=== PATIENT | female | born 1970 | race Caucasian/White ===

== ENCOUNTER 2022-07-06 06:58 | Outpatient (CLI) | payer OTHER, SELFPAY ==
[2022-07-06 07:30] LABS: Hematocrit 38.7 % (37.0-47.0); Hemoglobin 12.9 g/dL (12.0-15.0); Mean Corpuscular HGB Conc 33.3 g/dl (32-36); Mean Corpuscular Hemoglobin 29.1 pg (26-34); Mean Corpuscular Volume 87.4 fl (80-100); Mean Platelet Volume 9.2 fl (7.4-10.4); Platelet Count Result 251 k/mm3 (150-375); Red Blood Count 4.43 M/mm3 (4.2-5.4); Red Cell Distribution Width 13.2 % (11.5-14.5); White Blood Count 11.9 K/mm3 (4.5-10.0)
[2022-07-06 07:42] LABS: Potassium 4.5 mmol/L (3.4-5.0)
[2022-07-06 07:44] LABS: Rheumatoid Factor < 8.6 IU/ML (<12)
[2022-07-06 07:51] LABS: Alanine Aminotransferase 55 U/L (6-35); Albumin Level 4.4 g/dL (3.5-5.1); Alkaline Phosphatase 99 U/L (38-126); Anion Gap 8 mmol/L (8-16); Aspartate Amino Transferase 37 U/L (14-36); Bilirubin,Total 0.6 mg/dL (0.2-1.3); Blood Urea Nitrogen 16 mg/dL (7-17); Calcium 8.7 mg/dL (8.4-10.2); Carbon Dioxide 26 mmol/L (22-30); Chloride 106 mmol/L (98-107); Cholesterol 184 mg/dL (0-200); Estimated Glomerular Filt Rate > 60; Glucose 109 mg/dL (65-110); HDL Direct 49 mg/dL; Sodium 140 mmol/L (137-145); Triglycerides 190 mg/dL (<150)
[2022-07-06 07:54] LABS: LDL Cholesterol Direct 69 mg/dL
[2022-07-06 11:37] LABS: Erythrocyte Sedimentation Rate 16 mm/hr (0-20)
== END 2022-07-06 06:59 | disposition home or self-care (01) ==
PROVIDERS: PCP Family Medicine Adolescent Medicine; Visit Provider Physician Assistant
DX: M25.50 Pain in unspecified joint (principal); R25.2 Cramp and spasm; R53.83 Other fatigue; Z13.220 Encounter for screening for lipoid disorders
CPT/HCPCS: 36415; 80053; 80061; 83735; 84443; 85027; 85652; 86140; 86430

== ENCOUNTER → 2022-07-19 15:39 | Outpatient (CLI) | payer OTHER, SELFPAY ==
--- NOTE | ~2022-07-19 | MR_ITS ---
MRI of the brain Clinical History: Headache Technique: Axial and sagittal T1-weighted images were acquired. These were followed by axial T2-weigh francisco, diffusion weighted, gradient, and FLAIR images. Findings: There is no acute infarct or intracranial hemorrhage. There is somewhat patchy hyperintense FLAIR signal in the white matter adjacent to the atrium of left lateral ventricle and the left parie sumanth lobe, with a somewhat localized regional distribution (axial FLAIR images 20-26). No other signal abnormality seen in the remainder of the brain. Ventricles and subarachnoid spaces are unremarkable. Orbits are unremarkable. Paranasal sinuses and m astoid air cells are clear. Major intracranial flow voids are intact. Sagittal midline structures are intact. IMPRESSION: Regional hyperintense FLAIR signal in the left parietal white matter. While this could reflect atypic al localized distribution of chronic microvascular ischemic changes, other considerations could inclu de demyelinating disease, cerebritis, or possibly infiltrative neoplasm. Postcontrast imaging recomme nded to further assess for active enhancement. Follow-up MR in 3 months recommended to reassess as we ll. Reviewed, dictated and finalized at [facility]. IMPRESSION: Regional hyperintense FLAIR signal in the left parietal white matter. While thi s could reflect atypical localized distribution of chronic microvascular ischem ic changes, other considerations could include demyelinating disease, cerebriti s, or possibly infiltrative neoplasm. Postcontrast imaging recommended to furth er assess for active enhancement. Follow-up MR in 3 months recommended to reass ess as well.
== END ==
PROVIDERS: PCP Physician Assistant; Visit Provider Physician Assistant
DX: R51.9 Headache, unspecified (principal); R29.6 Repeated falls
CPT/HCPCS: 70551

== ENCOUNTER 2022-07-20 06:39 | Outpatient (CLI) | payer OTHER, SELFPAY ==
[2022-07-20 07:34] LABS: Basophils Absolute Auto 0.1 K/mm3 (0.0-0.1); Basophils Percent Auto 1.2 % (0.2-1.2); Eosinophils Absolute Auto 0.4 K/mm3 (0-0.3); Eosinophils Percent Auto 4.1 % (0-4.4); Hemoglobin 12.8 g/dL (12.0-15.0); Immature Granulocyte Absolute 0.02 K/mm3 (0.00-0.031); Immature Granulocyte Percent A 0.2 % (0-0.5); Lymphocytes Absolute Auto 1.83 K/mm3 (0.9-3.2); Lymphocytes Percent Auto 21.7 % (18.3-44.2); Mean Corpuscular HGB Conc 32.8 g/dl (32-36); Mean Corpuscular Hemoglobin 29.4 pg (26-34); Mean Corpuscular Volume 89.7 fl (80-100); Mean Platelet Volume 9.5 fl (7.4-10.4); Monocytes Absolute Auto 0.6 K/mm3 (0.1-0.6); Monocytes Percent Auto 6.6 % (2.6-8.5); Neutrophils Absolute Auto 5.6 K/mm3 (1.3-6.7); Neutrophils Percent Auto 66.2 % (45.5-73.1); Platelet Count Result 258 k/mm3 (150-375); Red Blood Count 4.35 M/mm3 (4.2-5.4); Red Cell Distribution Width 13.4 % (11.5-14.5); White Blood Count 8.5 K/mm3 (4.5-10.0)
[2022-07-20 07:46] LABS: Alanine Aminotransferase 32 U/L (6-35); Albumin Level 4.5 g/dL (3.5-5.1); Alkaline Phosphatase 98 U/L (38-126); Aspartate Amino Transferase 27 U/L (14-36); Bilirubin,Total 0.7 mg/dL (0.2-1.3)
== END 2022-07-20 06:40 | disposition home or self-care (01) ==
LOC: ANHLAB 06:43
PROVIDERS: PCP Physician Assistant; Visit Provider Physician Assistant
DX: R74.8 Abnormal levels of other serum enzymes (principal); D72.829 Elevated white blood cell count, unspecified
CPT/HCPCS: 36415; 80076; 85025

== ENCOUNTER 2022-08-03 13:34 | Outpatient (CLI) | payer OTHER, SELFPAY ==
--- NOTE | ~2022-08-03 | MR_ITS ---
EXAMINATION: MR cervical spine wo/w con DATE: 08/03/2022 15:13 INDICATION: Brain lesion. Abnormal brain MRI. Numbness and tingling in the fingers and arms and feet. TECHNIQUE: Magnetic resonance imaging (MRI) of the cervical spine was performed without and with 20 m L MultiHance intravenous contrast. COMPARISON: Brain MRI 07/19/2022 FINDINGS: There is kyphosis of cervical spine. There is 7 degrees levocurvature of cervicothoracic sp ine. Vertebral body heights are normal. There is moderately decreased disc height from C4-C5 through C6-C7. The spinal cord signal intensity is normal. The following disc levels are specifically discuss ed: C2-C3: The disc does not extend beyond the endplate margin. There is no uncovertebral joint osteoarth ritis. There is severe right and mild left facet joint osteoarthritis. There is mild right neural for aminal stenosis. There is no central canal stenosis. C3-C4: The disc does not extend beyond the endplate margin. There is no uncovertebral joint osteoarth ritis. There is no facet joint osteoarthritis. There is no neural foraminal stenosis. There is no jessica tral canal stenosis. C4-C5: The disc is bulging with superimposed left central extrusion. There is mild bilateral uncovert ebral joint osteoarthritis. There is mild bilateral facet joint osteoarthritis. There is mild bilater al neural foraminal stenosis. There is mild central canal stenosis with ventral indentation of the sp inal cord. C5-C6: The disc is bulging. There is moderate right and mild left uncovertebral joint osteoarthritis. There is no facet joint osteoarthritis. There is mild bilateral neural foraminal stenosis. There is mild central canal stenosis with ventral indentation of spinal cord. C6-C7: The disc is bulging. There is moderate bilateral uncovertebral joint osteoarthritis. There is no facet joint osteoarthritis. There is mild bilateral neural foraminal stenosis. There is mild centr al canal stenosis. C7-T1: The disc does not extend beyond the endplate margin. There is no uncovertebral joint osteoarth ritis. There is severe right and moderate left facet joint osteoarthritis. There is mild left neural foraminal stenosis. There is no central canal stenosis. IMPRESSION: 1. Normal spinal cord signal intensity. 2. Moderate cervical spondylosis. Reviewed, dictated and finalized at location [facility].
--- NOTE | ~2022-08-03 | MR_ITS ---
EXAMINATION: MR thoracic spine wo/w con DATE: 08/03/2022 15:24 INDICATION: Brain lesion. Abnormal brain MRI. Numbness and tingling in the feet, fingers, and arms. TECHNIQUE: Magnetic resonance imaging (MRI) of the thoracic spine was performed without and with 20 m L MultiHance intravenous contrast. COMPARISON: None FINDINGS: Bone alignment is normal. There is mild chronic height loss of T7 vertebral body. There is moderately decreased disc height at T7-T8 and T9-T10 and mildly decreased disc height at T10-T11. At T9-T10, there is a right central extrusion with mild central canal stenosis and ventral indentation o f the spinal cord. At T10-T11, there is a left central and foraminal zone extrusion with mild central canal stenosis. At T12-L1, there is a left central protrusion with mild central canal stenosis. Ther e is multilevel facet joint osteoarthritis, severe at a few levels. On the left, there is mild neural foraminal stenosis at T1-T2, T2-T3, T3-T4, and T10-T11. The spinal cord signal intensity is normal. The conus medullaris is at L1. IMPRESSION: 1. Normal spinal cord signal intensity. 2. Moderate thoracic spondylosis. Reviewed, dictated and finalized at location [facility].
== END 2022-08-03 13:35 ==
LOC: GOSHIMG 13:34
PROVIDERS: PCP Family Medicine Adolescent Medicine; Visit Provider Physician Assistant
DX: R94.02 Abnormal brain scan (principal); M47.814 Spondylosis without myelopathy or radiculopathy, thoracic region; M47.812 Spondylosis without myelopathy or radiculopathy, cervical region
CPT/HCPCS: 72156; 72157; A9577

== ENCOUNTER 2022-12-21 08:04 | Outpatient (CLI) | payer OTHER, SELFPAY ==
--- NOTE | ~2022-12-21 | MR_ITS ---
EXAMINATION: MR brain/brain stem wo/w con DATE: 12/21/2022 09:14 INDICATION: White matter disease. TECHNIQUE: Magnetic resonance imaging (MRI) of the brain and brainstem was performed without and with 20 mL MultiHance intravenous contrast. COMPARISON: Brain MRI 07/19/2022 FINDINGS: There is increased T2-weighted signal intensity in the left parietal lobe white matter. The re is no intracranial hemorrhage, acute infarction, or abnormal intracranial mass lesion. The ventric les are normal in size. The paranasal sinuses are clear. There are likely changes of ocular lens repl acement surgeries. The mastoid air cells are normal. IMPRESSION: 1. Stable left parietal white matter disease, likely chronic small vessel ischemic disease. Reviewed, dictated and finalized at location A. IMPRESSION: 1. Stable left parietal white matter disease, likely chronic small vessel ische manuela disease.
== END 2022-12-21 08:05 ==
LOC: GOSHIMG 08:05
PROVIDERS: PCP Nurse Practitioner Family; Visit Provider Nurse Practitioner Family
DX: R90.82 White matter disease, unspecified (principal)
CPT/HCPCS: 70553; A9577

== ENCOUNTER 2023-08-11 08:21 | Outpatient (CLI) | payer OTHER, SELFPAY ==
[2023-08-11 09:25] LABS: Glucose Fasting 101 mg/dL
[2023-08-11 10:18] LABS: Folic Acid 9.5 ng/mL (2.76->20)
[2023-08-11 10:51] LABS: Glucose 1 Hour 132 mg/dL
[2023-08-11 11:44] LABS: Free T4 Free Thyroxine 1.16 ng/mL (0.78-2.19)
[2023-08-11 12:10] LABS: Glucose 2 Hour 113 mg/dL
[2023-08-12 08:30] LABS: Triiodothyronine T3 Free 2.9 pg/mL (2.3-4.2)
[2023-08-13 07:04] LABS: Protein, Total 6.1 g/dL (6.1-8.1)
[2023-08-13 13:03] LABS: Homocysteine 10.5 umol/L (<10.4)
[2023-08-14 07:24] LABS: Methylmalonic Acid 146 nmol/L (87-318)
[2023-08-14 09:29] LABS: Albumin 3.9 g/dL (3.8-4.8); Alpha 1 Globulin 0.3 g/dL (0.2-0.3); Alpha 2 Globulin 0.7 g/dL (0.5-0.9); Beta 1 Globulin 0.4 g/dL (0.4-0.6); Gamma Globulin 0.6 g/dL (0.8-1.7)
[2023-08-14 09:52] LABS: Vitamin D 1,25 (OH)2 Total 47 pg/mL (18-72); Vitamin D2 1,25 (OH)2 <8 pg/mL; Vitamin D3 1,25 (OH)2 47 pg/mL
[2023-08-16 10:10] LABS: Vitamin B1 7 nmol/L (8-30)
[2023-08-16 11:58] LABS: Vitamin B6 3.6 ng/mL (2.1-21.7)
== END 2023-08-11 08:22 | disposition home or self-care (01) ==
LOC: ANHLAB 08:22
PROVIDERS: PCP Nurse Practitioner Family; Visit Provider Psychiatry & Neurology Neurology
DX: R90.89 Other abnormal findings on diagnostic imaging of central nervous system (principal); G62.9 Polyneuropathy, unspecified; G56.00 Carpal tunnel syndrome, unspecified upper limb; E55.9 Vitamin D deficiency, unspecified
CPT/HCPCS: 36415; 82607; 82652; 82746; 82951; 83090; 83921; 84155; 84165; 84207; 84425; 84439; 84443; 84481; 86038; 86334

== ENCOUNTER 2024-06-12 08:46 | Outpatient (CLI) | payer OTHER, SELFPAY ==
--- NOTE | ~2024-06-12 | US_ITS ---
EXAMINATION: US abdomen limited DATE: 06/12/2024 09:04 INDICATION: Other specified abnormal findings of blood chemistry. Abnormal liver function tests. TECHNIQUE: Multiple grayscale and Doppler ultrasound images of the abdomen were obtained. COMPARISON: None FINDINGS: The visualized portions of the head, body, and tail of the pancreas are normal. The liver i s normal without focal lesion. No liver surface nodularity. There is normal flow in main portal vein. The gallbladder is absent. The common duct is normal and measures 5 mm. IMPRESSION: 1. Normal right upper quadrant ultrasound status post cholecystectomy. Reviewed, dictated and finalized at location A. [employer]
== END 2024-06-12 08:47 | disposition home or self-care (01) ==
PROVIDERS: PCP Nurse Practitioner Family; Visit Provider Family Medicine
DX: R79.89 Other specified abnormal findings of blood chemistry (principal); R74.8 Abnormal levels of other serum enzymes; Z90.49 Acquired absence of other specified parts of digestive tract
CPT/HCPCS: 76705

== ENCOUNTER 2024-07-17 09:55 | Outpatient (CLI) | payer OTHER, SELFPAY ==
--- OUTSIDE RECORDS SUMMARY | 2024-07-17 10:38 | XMS_ITS | Clinical Summary ---
Author Organization [facility] Address [address] [place] [address] Care Team Providers Care Failure Analysis Engineer Name Role Phone Unavailable Primary Care Provider Unavailabl e Encounters Date Type Department Care Team Description 05/20/2024 Abstract [facility] (Former[facility] Bariatrics and General Surgery at the 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
--- OUTSIDE RECORDS SUMMARY | 2024-07-17 10:38 | XMS_ITS | Data Portability ---
Author Organization [place] [facility], Main Office Address [address] [place] [address] Care Team Providers Care Command Center Analyst Name Role Phone JOEL MURPHY Primary Care Provider JOEL MURPHY Referring Provider [phone] Assessment Encounter Date Assessment Date Assessment LastModified by Organization Details LastModified Time 05/29/2023 05/29/2023 52-year-old patient presents today with right knee pain that has been going on for years but has recently gotten worse in the last few months. She is having pain with daily activities like getting in and out of a car and using stairs. The knee occasionally gives out on her and feels stiff. She sometimes experiences a clicking, but not catching or locking. for treatment she has tried ibuprofen, ice, rest, a compression sleeve, and has been doing PT for balance issues. She states 28 years ago she had surgery on the knee for a cartilage deficiency. Review of systems per patient questionnaire Imaging: X-rays reviewed show mild to moderate degenerative changes with some joint space narrowing. No acute bony abnormalities or fractures. Physical exam: Antalgic gait. No effusion. Tenderness to palpation of the medial joint line. Range of motion 0-140. She has pain with deep flexion. Negative Edilma's. negative Emil's with firm endpoint, negative posterior drawer, stable to varus valgus stress. At this time she is currently in physical therapy working on exercises for balance. We will provide her with a knee exercise handout that she can work on in addition to her current therapy. We will order meloxicam for anti-inflammatory therapy. We can see her back in 4-6 weeks after course of treatment to check her progress. She is in agreement with this plan. Not available 05/29/2023 18:07:33 07/03/2023 07/03/2023 52-year-old patient presents today for follow up of right knee pain. At her last appointment we gave her exercises to work on and meloxicam. She feels like she has been making improvements over the last few weeks, but is still experiencing pain. The pain continues to keep her up at night. Physical exam: Antalgic gait. No effusion. Tenderness to palpation of the medial joint line. Range of motion 0-140. She has pain with deep flexion. Negative Edilma's. negative Emil's with firm endpoint, negative posterior drawer, stable to varus valgus stress. Today we discussed the risks and benefits of a cortisone injection. She elected to proceed with the injection today. We recommend she continue to take the meloxicam for anti-inflammatory therapy and do the exercises at home. We can see her back as needed for pain. She is in agreement with this plan. Not available 07/03/2023 21:06:57 10/22/2023 10/22/2023 The patient has moderate primary osteoarthritis right knee joint with pain. Under sterile conditions I injected the patient's right knee joint in the office with 4 cc 0.5% Marcaine and 20 mg of Kenalog. Patient tolerated the procedure well. I will see her back as needed we can do this again in 3 months if necessary she voiced understanding and agrees above plan she will call for any further problems difficulties or questions. Not available 10/22/2023 09:17:11 01/24/2024 01/24/2024 Patient has moderate primary osteoarthritis right knee joint. At her request under sterile conditions I injected the patient's right knee joint in the office with 4 cc 0.5% bupivacaine and 20 mg of Kenalog. Patient tolerated the procedure well. I will see her back as needed we can do this again in 3 months if necessary she will continue with current conservative measures and call for any further problems difficulties or questions. Not available 01/24/2024 10:11:19 05/16/2024 05/16/2024 the patient has moderately severe primary osteoarthritis right knee joint under sterile conditions I injected the patient's right knee joint in the office with 4 cc of 0.5% bupivacaine and 20 mg of Kenalog. Patient tolerated the procedure well. I will see her back as needed we can do this again 3 months if necessary she voiced understanding agreed with the above plan she will call for any further problems difficulties or questions. Not available 05/16/2024 10:41:41 Plan of Treatment Reminders Order Date Submit Date Provider Last Modified By Organization Details Last Modified Time Details Appointments Any 5 2024 08:00A DESTIN Cronin Not available Not available Not available Lab None recorded. Referral None recorded. Procedures injection /aspirati on joint/bur sa (PROC) 2024 025 [email or web address] In-Office Order, Internal Use Only DO Not Attach Compendium DO Not Attach Compendium, Do Not Delete/merge, [id number] 05/16/2024 10:20:52 injection /aspirati on joint/bur sa (PROC) 2023 024 [email or web address] In-Office Order, Internal Use Only DO Not Attach Compendium DO Not Attach Compendium, Do Not Delete/merge, [id number] 01/24/2024 09:42:59 injection /aspirati on joint/bur sa (PROC) - in office procedure , administe red by provider 2023 024 [email or web address] In-Office Order, Internal Use Only DO Not Attach Compendium DO Not Attach Compendium, Do Not Delete/merge, [id number] 10/22/2023 08:59:54 injection /aspirati on joint/bur sa (PROC) - in office procedure , administe red by provider 2023 024 [email or web address] In-Office Order, Internal Use Only DO Not Attach Compendium DO Not Attach Compendium, Do Not Delete/merge, [id number] 07/03/2023 09:05:11 Surgeries None recorded. Imaging XR, knee, 3 view 2023 024 [email or web address] [facility] [place], [address], [place], [address], 05/29/2023 22:33:27 Medication Orders bupivacai ne HCl 0.5 % (5 mg/mL) injection solution 2024 025 [id number], [address] [facility] [address] [place] [address], [address], 05/16/2024 11:46:00 Kenalog 10 mg/mL suspensio n for injection 2024 025 [email or web address], [address] [facility] [address] [place] [address], [address], 05/16/2024 11:46:00 bupivacai ne HCl 0.5 % (5 mg/mL) injection solution 2023 024 [email or web address], [address], [address], 01/24/2024 10:43:27 Kenalog 10 mg/mL suspensio n for injection 2023 024 [email or web address], [address] [facility] [address] [place] [address], [address], 01/24/2024 10:43:27 Marcaine (PF) 0.5 % (5 mg/mL) injection solution 2023 024 [email or web address], [address] [place] [address], [address], 10/22/2023 10:45:44 Kenalog 10 mg/mL suspensio n for injection 2023 024 [email or web address], [address] [facility] [address] [place] [address], [address], 10/22/2023 10:45:44 Kenalog 10 mg/mL suspensio n for injection 2023 024 [id number] [facility], [address], [address], 10/10/2023 08:14:47 Marcaine (PF) 0.5 % (5 mg/mL) injection solution 2023 024 [email or web address] [id number], [address] [place] [address], [address], 07/03/2023 22:44:50 Mobic 15 mg tablet 2023 024 [email or web address] [id number], [address] [place] [address], [address], 05/29/2023 22:33:27 Patient TargetsNo targets recorded. Patient InstructionsNo instructions recorded. Reason for Referral None Reported. Results Created Date Observation Date Name Description Value Unit Range Abnormal Flag Note LastModifiedBy Organization Detail LastModifiedTime 05/29/19 XR, knee, 3 view No observ ation record ed. [email or web address] [facility] [place] [address], [place], [address], 05/29/2023 17:43:55 Result Notes None recorded. Problems Name Problem SNOMED Code Status Onset Date Resolution Date Notes Provider Name and Address Organization Details Recorded Time Pain of right knee joint 2708185878078 00 Active 2023 IVÁN Grace [facility] [employer] 09:22:41 Osteoarthri tis of right knee joint 1895520564715 00 Active 2023 DESTIN Bhatti [address], [address], [place], [address], [employer] 09:17:18 Problem Notes None recorded. Procedures Surgical History Date Name Laterality Status Provider Name and Address Organization Details Recorded Time 07/03/19 24 Ortho - Cortisone Injection completed Gi Elaine NP [address], [address], [place], [address], [employer] 07/03/2023 21:07:11 Hysterectomy completed IVÁN Grace [place] - [employer] 05/29/2023 09:21:40 section completed IVÁN Grace [employer] [facility] 05/29/2023 09:21:53 Gallbladder Surgery completed Peggy Thayer, ATC L [place] - [facility] 05/29/2023 09:22:05 Imaging Results Imaging Date Name Status LastModified by Organiz ation Details LastModified Time 05/29/2023 XR, knee, 3 view completed [email or web address] [facility] [place] [address], [place], [address], 05/29/2023 17:43:55 Procedure Notes None recorded. Medical Equipment None Reported. Allergies Allergen ID Allergen Name Allergen Category Reaction Reaction Severity Criticality Documentation Date Start Date Code Code System Note Provider Name and Address Organization Details Recorded Time 76918 morphine medicatio n Not available Not available Not available 06/28/2022 7052 RxNorm Not Available [facility] 22:07:24 Medications Name Sig Start Date Stop Date Status Note LastModified by Organization Details LastModified Time losartan 50 mg tablet TAKE 1 TABLET BY MOUTH EVERY DAY active Not Available Not Available No t Available azithromyci n 250 mg tablet 11/19 completed Not Available Not Available Not Available benzonatate 200 mg capsule 11/19 completed Not Available Not Available Not Available meloxicam 15 mg tablet TAKE 1 TABLET BY MOUTH EVERY DAY 2023 active Not Available Not Available Not Avai lable bupivacaine HCl 0.5 % (5 mg/mL) injection solution Take 20 mg by injection route. 2024 active Not Available Not Available Not Avai lable baclofen 20 mg tablet TAKE 1 TABLET BY MOUTH EVERY DAY AT BEDTIME NEEDED FOR MUSCLE SPASM 05/29 completed Not Available Not Available Not Available amoxicillin 875 mg tablet 11/19 completed Not Available Not Available Not Available Kenalog 10 mg/mL suspension for injection Take 20 mg by injection route. 2024 active ND: 0003- 0494- 20 Not Available Not Available Not Available pantoprazol e 40 mg tablet,damien yed release TAKE 1 TABLET BY MOUTH EVERY DAY active Not Available Not Available No t Available lisinopril 10 mg tablet TAKE 1 TABLET BY MOUTH EVERY DAY 05/29 completed Not Available Not Available Not Available diclofenac sodium 75 mg tablet,damien yed release Take 1 tablet twice a day by oral route for 30 days. 11/19 completed Not Available Not Available Not Available methylpredn isolone 4 mg tablets in a dose pack TAKE 6 TABLETS ON DAY 1 DIRECTED ON PACKAGE AND DECREASE BY 1 TAB EACH DAY FOR A TOTAL OF 6 DAYS 05/29 completed Not Available Not Available Not Available Marcaine (PF) 0.5 % (5 mg/mL) injection solution Take 40 mg by injection route. 2023 active Not Available Not Available Not Avai lable duloxetine 30 mg capsule,del ayed release PLEASE SEE ATTACHED FOR DETAILED DIRECTION S active Not Available Not Available No t Available duloxetine 60 mg capsule,del ayed release TAKE 1 CAPSULE BY MOUTH EVERY DAY active Not Available Not Available No t Available Vitals Date Recorded Body height Body mass index (BMI) Body weight Provider Name and Address Organization Details Last Updated DateTime 05/29/2023 165.1 cm 48.1 kg/m2 456070.19 g Peggy Thayer [facility] [employer] 05/29/2023 09:18:46 Date Recorded Body height Body mass index (BMI) Body weight Pain severity - 0-10 verbal numeric rating [Score] - Reported Provider Name and Address Organization Details Last Updated DateTime 07/03/2023 165.1 cm 46.6 kg/m2 611526.86 g Sujata Nguyen Mitra [facility] [employer] [facility] 07/03/2023 08:40:21 Date Recorded Body height Body mass index (BMI) Body weight Provider Name and Address Organization Details Last Updated DateTime 10/22/2023 165.1 cm 48.3 kg/m2 270836.79 g Claire Skinner [employer] [facility] [employer] [facility] 10/22/2023 08:57:02 Date Recorded Body height Body mass index (BMI) Body weight Provider Name and Address Organization Details Last Updated DateTime 01/24/2024 165.1 cm 49.6 kg/m2 450506.53 bebeto Skinner AUD[employer]OVISUAL EQUIPMENT O[employer] [facility] [employer] 01/24/2024 09:40:50 Date Recorded Body height Body mass index (BMI) Body weight Provider Name and Address Organization Details Last Updated DateTime 05/16/2024 165.1 cm 48.9 kg/m2 865726.16 g Claire Skinner, AUDIOVISUAL EQUIPMENT OPERATOR [employer] 05/16/2024 10:19:28 Social History Question Answer Notes LastModified by Organizat ion Details LastModified Time Tobacco Smoking Status Never Smoker Peggy Thayer, ATC L null, [employer] 05/29/2023 09:21:23 What Is Your Level Of Alcohol Consumption? Occasional [email or web address] Information not available 05/29/2023 Sex: Unknown Functional Status None recorded. Mental Status None recorded. Family History Relationship Description Onset Age of this Age Resolved Age Notes LastModified by Organization Details LastModified Time Unspecified Relation Complication of anesthesia [email or web address] Not available 09:19:59 Paternal Grandfather Heart disease [email or web address] Not available 05/02 09:20:20 Maternal Grandmother Family history of malignant neoplasm [email or web address] Not available 05/02 09:20:33 Sister Hypertensive disorder [email or web address] Not available 05/02 09:20:47 Sister Diabetes mellitus [email or web address] Not available 05/02 09:21:01 Father Diabetes mellitus [email or web address] Not available 05/02 09:21:01 Medical History Condition Response SKIN PROBLEMS Y HYPERTENSION Y Gynecological HistoryNo gynecological history recorded. Obstetrics History GPAL:G 0 P 0 0 0 0 Past Encounters Encounter ID Performer Location Encounter Start Date Encounter Closed Date Diagnosis/Indication Diagnosis SNOMED-CT Code Diagnosis ICD10 Code Diagnosis Note [id number] [facility] [place] [address] [place] [address] 05/29/2023 09:00:13 05/29/2023 09:53:24 Pain of right knee joint 2017251396 76559 M25.048 [id number] Gi Elaine NP [facility] [place] [address] [place] [address] 07/03/2023 08:38:19 07/03/2023 09:06:11 Pain of right knee joint 1692693521 86012 M25.458 [id number] Chuy Walsh, PA [facility] [place] [address] [place] [address] 10/22/2023 08:50:19 10/22/2023 10:14:35 Pain of right knee joint 5691322995 77311 M25.561 Osteoarthr itis of right knee joint 1899727009 94629 M17.11 [id number] DESTIN Bhatti [facility] [place] [address] [place] [address] 01/24/2024 09:35:04 01/24/2024 10:18:23 Osteoarthritis of right knee joint 6347851902 11266 M17.11 Pain of ri ght knee joint 9918284722 17950 M25.074 [id number] DESTIN Bahtti [facility] [place] [address] [place] [address] 05/16/2024 10:09:55 05/16/2024 10:56:38 Osteoarthritis of right knee joint 1164145544 74287 M17.11 Pain of ri ght knee joint 5130805511 03094 M25.561 Health Concerns Section Related Observation LastModified by Organization Detai ls LastModified Time None Recorded Concern Status LastModified by Organization Details LastModified Time None Recorded Advance Directives Directive None Recorded Payers Encounter Date Sequence Insurance Name Policy Number Policy Mcconnell Covered Member ID Mcconnell Member ID Guarantor Name 05/29/2023 1 [employer] (PPO) [id number] Ruben Terrell [id number] 2 Beverley Terrell 07/03/2023 1 [employer]) [id number] Ruben Terrell [id number] 2 Beverley Terrell 10/22/2023 1 [employer] (PP[employer]) [id number] Ruben Terrell [id number] Beverley Terrell 01/24/2024 1 [employer] (PP[employer]) [id number] Ruben Terrell [id number] Beverley Terrell 05/16/2024 1 [employer] (PP[employer]) [id number] Ruben Terrell [id number] Beverley Terrell Notes Date Note Type Note Provider Name and Address Organization Details Recorded Time 10/22/2023 text/html Patient returns with right knee pain she comes in today requesting repeat cortisone injection her last 1 was about 3-1/2 months ago. She did very well the last week or 2 her knee pain has started to flare up again. Denies any new trauma or injury previous x-rays show moderate primary osteoarthritis in the right knee particularly the patellofemoral articulation she has crepitation aching pain some stiffness and a little puffiness if she overdoes it. She takes meloxicam on an off recently she started taking it again because her knee painless flaring up. Denies any new trauma or injury would like another shot of cortisone today. DESTIN Bhatti [address], [address], [place], [address], [employer] 10/22/2023 09:17:41 01/24/2024 text/html Patient returns complaining of right knee pain. The patient has moderate primary osteoarthritis of the right knee joint most of the pain is localized to the lateral compartment she does have a mild valgus deformity she denies any new trauma or injury. She has narrowing in the tibial femoral and patellofemoral articulations with crepitation through the arc of motion she takes meloxicam on an off this does help somewhat it has been 3 months since her last cortisone injection she would like to repeat that today. DESTIN Bhatti [address], [address], [place], [address], [employer] 01/24/2024 10:11:29 05/16/2024 text/html The patient retu rns complaining of right knee pain mostly localized to the lateral and patellofemoral compartments. I have seen her for this previously about 4 months ago. She had a shot of cortisone which gave her good relief for awhile. She denies any new problems she has a mild valgus deformity aching pain worse with activity somewhat relieved by rest. At 5 ft 5 in tall 294 lb she is not a candidate for total knee arthroplasty but she gets by with conservative measures she would like to try another shot of cortisone today. DESTIN Bhatti [address], [address], [place], [address], [employer] 05/16/2024 10:42:01 OBGyn Episode No OBEpisode recorded.
--- OUTSIDE RECORDS SUMMARY | 2024-07-17 10:38 | XMS_ITS | Encounter Summary ---
Author Organization [facility] Healthcare Address [address] [place] [address] Care Team Providers Care Copra Sampler Name Role Phone Cedric Esqueda MD Primary Care Prov ider Avril Gongora NP Unavailable [phone] Reason for Visit * Reason Comments Morbid Obesity Hypertension * Consultation (Routine) - Pending Review Specialty Diagnoses / Procedures Referred By Jos ng Referred To Contact Diabetes and Nutrition Services Diagnoses Morbid obesity with body mass index (BMI) of 40.0 to 49.9 (HCC) Essential (primary) hypertension Lucretia Marie NP [address] [facility] [phone] [place] [address] Phone: tel: fax: [address] [phone] Referral ID Status Reason Start Date Expiration Date Visits Requested Visits Authorized [id number] Pending Review Specialty Services Required 06/04/2024 07/04/2025 10 10 Encounter Details Date Type Department Care Team (Latest Contact Info) Description 07/16/2024 8:30 AM CDT Clinical Support [facility] Diabetes and Nutrition [address] Morbid obesity with body mass index (BMI) of 40.0 to 49.9 (HCC) (Primary Dx); Essential (primary) hypertension Social History Tobacco Use Types Packs/Day Years Used Date Smoking Tobacco: Never Passive Smoke Exposure: Never Smokeless Tobacco: Never AUDIT-C Answer Date Recorded Q1: How often do you have a drink containing alc ohol? Monthly or less 06/04/2024 Q2: How many drinks containi ng alcohol do you have on a typical day when you are drinking? 1 or 2 06/04/2024 Q3: How often do you have si x or more drinks on one occasion? Never 06/04/2024 Comments No Sex and Gender Information Value Date Recorded Sex Assigned at Not on file Legal Sex Female 1:43 PM CDT Gender Identity Female 08/15/2021 6:30 AM CDT Sexual Orientation Straight 08/15/2021 6: 30 AM CDT documented as of this encounter Last Filed Vital Signs Vital Sign Reading Time Taken Comments Blood Pressure - - Pulse - - Temperature - - Respiratory Rate - - Oxygen Saturation - - Inhaled Oxygen Concentration - - Weight 129.5 kg (285 lb 9.6 oz) 07/16/2024 8:46 AM CDT standing wt in office Height 165.1 cm (5' 5 ) 07/16/2024 8:46 AM CDT Body Mass Index 47.53 07/16/2024 8:46 AM CDT documented in this encounter Patient Instructions * Patient Instructions* Mary Art, RD - 07/16/2024 8:30 AM CDT Goals: (marked x) Practice chewing well,at least 15-20 times per bite or until applesauce consistency Eat more fruitsand vegetables Slow down eating - put silverware down between bites, spend 15 minutes or more during meal time Eatprotein first, non-starchy vegetables, fruit and starches last Practice not eating and drinking at the same time Plan menu in advance Start a multivitamin with iron (increase to 2 per day after surgery) Do food preparation in advance Discuss vitamin D level with PCP and possible need for supplementation Read food labels for protein, fat, sugar and calories Vitamin B 12 - 500 mcg to start after surgery Read ingredients list for sugar content Select and purchase a protein supplement Limit fat to 3-5 grams per serving Stop added sugar and replace with sugar substitute Increase physical activity x Stop carbonated beverages x Call dietitian with any questions or send through My Chart before or after surgery as needed. Scheduling [phone]. Stop/limit fried foods Visit [facility]) and listen to a lecture of your choices Do NOT skip meals x Follow a 1400 calorie diet for the 2 weeks prior to surgery Decrease portion sizes, use MyPlate method x Continue with previously accomplished goals documented in this encounter Progress Notes * Mary Art RD - 07/16/2024 8:30 AM CDT Encounter Date: 07/16/2024 Referring Physician: Iva Ms. Beverley Terrell is a 53 y.o. female : 1970 Start Time: 816 End Time: 842 Total Minutes: 26 min Ms. Terrell's visit is for nutrition evaluation and education for weight loss surgery Note: All remaining appointment for have been canceled per pt request. She was able to speak with 's office and confirm additional MSWL is no longer needed 2/2 being in weight watchers currently and for the past 2 years. Height: 165.1 cm (5' 5 ) Weight: 129.5 kg (285 lb 9.6 oz) (standing wt in office) Body mass index is 47.53 kg/m??. Wt loss of 5 lbs since our last visit. Chief Complaint Patient presents with Morbid Obesity Hypertension Patient Active Problem List Diagnosis Dizziness and giddiness Vestibular migraine Arthralgia of right knee History of partial hysterectomy History of cholecystectomy History of appendectomy History of tonsillectomy History of adenoidectomy Morbid obesity (HCC) No diagnosis on [place] Essential (primary) hypertension Morbid obesity with body mass index (BMI) of 40.0 to 49.9 (HCC) Lab Results Component Value Date CHOL 181 06/06/2024 TRIG 89 06/06/2024 HDL 56 06/06/2024 ALBUMIN 4.2 06/06/2024 GLUCOSE 95 06/06/2024 HGBA1C 5.7 (H) 06/06/2024 FERRITIN 234 (H) 06/06/2024 IRON 54 06/06/2024 TIBC 291 06/06/2024 TRANSFERSAT 19 (L) 06/06/2024 25HYDROVITD 19.0 (L) 06/06/2024 VITB12 670 06/06/2024 VITB1 116 09/28/2022 Current Outpatient Medications Medication Instructions cyanocobalamin, vitamin B-12, 1,000 mcg/mL drops Take by mouth losartan (COZAAR) 50 mg, Daily magnesium oxide 200 mg magnesium tablet 200 mg of elemental magnesium, As needed SEMAGLUTIDE, WEIGHT LOSS, SUBQ 2.4 mg, subcutaneous, Every 7 days, She states she is acquiring through life and has not had success. venlafaxine XR (EFFEXOR-XR) 75 mg, Daily Wt Readings from Last 3 Encounters: 07/16/24 129.5 kg (285 lb 9.6 oz) 06/10/24 131.7 kg (290 lb 6.4 oz) 06/04/24 136.1 kg (300 lb) Weight History Ms. Terrell reveals that she was overweight as a child. Weight in high school reported to be 190#.She hit 200 # 20. She hit 250 # 30. She hit 300 # 50. She has a pattern of losing weight and then regaining more than she lost. Her lowest weight in the last 5 years - 265 #. Her highest weight in the last 5 years - 305 #. Ms. Terrell's current Weight:129.5 kg (285 lb 9.6 oz) (standing wt in office). Wt Readings from Last 3 Encounters: 07/16/24 129.5 kg (285 lb 9.6 oz) 06/10/24 131.7 kg (290 lb 6.4 oz) 06/04/24 136.1 kg (300 lb) Weight loss attempts: Diet Duration Pounds Lost Dates Weight watchers 2 years 10 2022- current keto 3 years 60 [id number] Intermittent fasting 5 years none 2020-current Low calorie and MyFitness Pal 2-2.5 years none [id number] Ms. Terrell continues to be successful and has accomplished/practiced all the goals we discussed in last visit. She has last 5 lbs since our last visit. I congratulated her on her efforts and accomplishments. Diet history reveals that Ms. Foster diet is low to moderate in fat and more consistent in carbohydrate. She does not use any beverages with added sugar and has continued to reduce her intake of diet soda to 2 per week. She does not skip meals, she normally eats 4 small meals per day. She reports if she skips meals this makes her GERD worse. She has denied overeating if skipping meals. She con tinues to practice slowing down with meals (sets a timer) and avoids liquids with meals. Dairy intake is close to adequate with use of premiere protein, fairlife milk and cheese/yogurt. She has used premiere, fairlife and clean simple eats protein powder in past and likes all three (all are acceptable to use after surgery per review of labels). She does not appear to be lactose intolerant. Fruit intake is close to adequate, has increased to 3 servings per day (with meals and snacks). Vegetable intake is close to adequate, has increased to 3 servings per day (with meals and snacks). Whole grain intake is inadequate. She eats out 3 x / week or less. Fast food intake is minimal. She states going out to eat to a local restaurant and choosing salads/roasted chicken most of time. Dentition - she does not have problems chewing. Menu planning and prep is done 3 days in advance. Cooking - She isable to cook. Grocery shopping - She reads food labels for added sugar and total fat. Alcohol intake - only drinks on vacation. Financial resources do not limit food choices. Portion sizes are appropriate and she currently weights her food with a food scale. Supplement use: Multivitamin - takes. Calcium supplement - does not take. Vitamin D supplement - takes 10,000 IU daily (per pt report) and plans to get labs rechecked in 3 months per PCP recommendations. Vitamin B 12 supplement - takes (has been taking for 2 years). Activity level is increased to moderate. She walks for 1 hour 4 days a week and has started strength training 2 days a week Social: , travels a lot for work Occupation: works FT, desk job Nutrition and lifestyle changes necessitated by this procedure were discussed with Ms. Terrell. She believes the changes will be manageable. Ms. Beverley Terrell has demonstrated commitment and compliance with past programs and it is highly unlikely, given her history of failed weight management attempts and sedentary lifestyle, that she will achieve and sustain a significant weight loss with anon-surgical approach. Bariatric nutrition educational materials given. The [place]-St Jeor formula estimates her resting energy expenditure at 1906 calories. An activity factor of 1.4 estimates her daily calorie needs at 2668.4. A 1660 calorie level should result in approximately 2 # weight loss / week. Calorie needs may need to be adjusted as weight loss occurs. Set protein goal at 60-80 grams. Ms. Terrell understands that she will not be able to consume 1660 calories at first. She understands that this is an upper limit restriction and not a goal. Ms. Terrell is a good candidate for weight loss surgery. Counseling has been provided regarding the potential for success of weight loss surgery, dependent on post-op diet modification. There appears to be no nutritional contraindications at this time. She desires weight loss surgery to decrease risk of disease, improve her health and increase mobility. Handouts Provided: 2022 Weight Loss Surgery Impact on Nutrition, bariatric plate options, and Bariatric MVI options Goals: (marked x) Practice chewing well,at least 15-20 times per bite or until applesauce consistency Eat more fruitsand vegetables Slow down eating - put silverware down between bites, spend 15 minutes or more during meal time Eatprotein first, non-starchy vegetables, fruit and starches last Practice not eating and drinking at the same time Plan menu in advance Start a multivitamin with iron (increase to 2 per day after surgery) Do food preparation in advance Discuss vitamin D level with PCP and possible need for supplementation Read food labels for protein, fat, sugar and calories Vitamin B 12 - 500 mcg to start after surgery Read ingredients list for sugar content Select and purchase a protein supplement Limit fat to 3-5 grams per serving Stop added sugar and replace with sugar substitute Increase physical activity x Stop carbonated beverages x Call dietitian with any questions or send through My Chart before or after surgery as needed. Scheduling [phone]. Stop/limit fried foods Visit [facility] ([facility]) and listen to a lecture of your choices Do NOT skip meals x Follow a 1400 calorie diet for the 2 weeks prior to surgery Decrease portion sizes, use MyPlate method x Continue with previously accomplished goals Mary Art RDN, LDN Diabetes Education and Nutritional Counseling [facility] documented in this encounter Plan of Treatment Not on file documented as of this encounter Visit Diagnoses Diagnosis Morbid obesity with body mass index (BMI) of 40.0 to 49.9 (HCC)- Primary Essential (primary) hypertension Unspecified essential hypertension documented in this encounter Care Teams Copra Sampler Relationship Specialty Start Date End Date Cedric Esqueda MD [address] [place] [address] PCP - General Family Medicine 01/04/21 Avril Gongora NP [address] [place] [address] Nurse Practitioner Family Practice 01/15/24 documented as of this encounter
--- OUTSIDE RECORDS SUMMARY | 2024-07-17 10:38 | XMS_ITS | Clinical Summary ---
Author Organization [facility] [address] Address [address] [place] [address] Care Team Providers Care Social Service Manager Name Role Phone Cedric Esqueda MD Primary Care Prov ider Avril Gongora MOT[employer]HIC[employer]SEMBLY SUPERVISOR Unavailable [phone] Allergies Active Allergy Reactions Criticality Noted Date Comments Morphine Itching Low 02/21/2021 Medications cyanocobalamin, vitamin B-12, 1,000 mcg/mL drops Take by mouth Active losartan (COZAAR) 50 mg tablet Take 1 tablet (50 mg total) by mouth daily Active venlafaxine XR (EFFEXOR-XR) 75 mg 24 hr capsule Take 1 capsule (75 mg total) by mouth daily 5 Active magnesium oxide 200 mg magnesium tablet Take 1 tablet (200 mg of elemental magnesium total) by mouth as needed 2 Active SEMAGLUTIDE, WEIGHT LOSS, SUBQ Inject 2.4 mg under the skin every 7 days She states she is acquiring through life and has not had success. Active Active Problems Problem Noted Date Diagnosed Date No diagnosis on [place] I 06/11/2024 Essential (primary) hypertension 06/11/2024 Morbid obesity with body mass index (BMI) of 40. 0 to 49.9 06/11/2024 Morbid obesity 06/10/2024 History of partial hysterectomy 06/04/2024 History of cholecystectomy 06/04/2024 History of appendectomy 06/04/2024 History of tonsillectomy 06/04/2024 History of adenoidectomy 06/04/2024 Arthralgia of right knee 05/28/2023 Vestibular migraine 08/15/2021 Dizziness and giddiness 02/23/2021 Encounters Date Type Department Care Team Description 07/16/2024 8:30 AM CDT Clinical Support [facility] Diabetes and Nutrition [address] [place] [address] Morbid obesity with body mass index (BMI) of 40.0 to 49.9 (HCC) (Primary Dx); Essential (primary) hypertension 06/20/2024 9:[address] ASSISTANT Therapy [facility] [address] [place] [address] [address] [place] [address] Elizabeth Tenorio DPT Morbid obesity with body mass index (BMI) of 40.0 to 49.9 (HCC) (Primary Dx); Essential (primary) hypertension 06/20/2024 Plan of Care Documentation [facility] [address] [place] [address] [address] [place] [address] 06/13/2024 Orders Only [facility] Minimally Invasive Surgery [address] [facility] Medical Office [address] [place] [phone] Lucretia Marie NP Morbid obesity with body mass index (BMI) of 40.0 to 49.9 (HCC) (Primary Dx); Essential (primary) hypertension 06/11/2024 11:[address] ASSISTANT Telemedicine [facility] [address] [place] [id number] Arvind Dunlap, PhD Morbid obesity (HCC) (Primary Dx); Morbid obesity with body mass index (BMI) of 40.0 to 49.9 (HCC); Essential (primary) hypertension; No diagnosis on [place] I 06/10/2024 8:[address] ASSISTANT Clinical Support [facility] Diabetes and Nutrition [address] [place] [address] Morbid obesity with body mass index (BMI) of 40.0 to 49.9 (HCC); Essential (primary) hypertension 06/09/2024 4:[address] ASSISTANT - 06/09/2024 11:[address] ASSISTANT Hospital Encounter [facility] [address] [place] [address] Morbid obesity with body mass index (BMI) of 40.0 to 49.9 (HCC); Essential (primary) hypertension Discharge Disposition: Discharge to home or self care 06/06/2024 8:[address] ASSISTANT Lab [facility] [address] [place] [id number] Morbid obesity with body mass index (BMI) of 40.0 to 49.9 (HCC); Essential (primary) hypertension 06/04/2024 4:[address] ASSISTANT Office Visit [facility] Minimally Invasive Surgery [address] [place] [address] Medical Office [address] [place] [address] Lucretia Marie NP Morbid obesity with body mass index (BMI) of 40.0 to 49.9 (HCC); Essential (primary) hypertension from Last 3 Months Surgical History Surgery Date Site/Laterality Comments TYMPANOSTOMY TUBE PLACEMENT APPENDECTOMY SECTION KNEE ARTHROSCOPY CATARACT EXTRACTION PARTIAL HYSTERECTOMY Medical History Medical History Date Comments Allergic rhinitis Family History Medical History Relation Name Comments Diabetes Father Cancer Other Diabetes Sister Relation Name Status Comments Father Other Sister Social History Tobacco Use Types Packs/Day Years Used Date Smoking Tobacco: Never Passive Smoke Exposure: Never Smokeless Tobacco: Never Tobacco Cessation:Counseling Given: Not Answered AUDIT-C Answer Date Recorded Q1: How often [...] Orientation Straight 08/15/2021 6: 30 AM CDT Obstetrics History Last Filed Vital Signs Vital Sign Reading Time Taken Comments Blood Pressure 130/76 06/20/2024 9:[address] ASSISTANT Pulse 96 06/20/2024 9:[address] ASSISTANT Temperature 36.6 C (97.8 F) 09/28/2022 9:02 AM CDT Respiratory Rate 20 09/28/2022 9:02 AM CDT Oxygen Saturation 99% 06/04/2024 3:[address] ASSISTANT Inhaled Oxygen Concentration - - Weight 129.5 kg (285 lb 9.6 oz) 07/16/2024 8:46 AM CDT standing wt in office Height 165.1 cm (5' 5 ) 07/16/2024 8:46 AM CDT Body Mass Index 47.53 07/16/2024 8:46 AM CDT Plan of Treatment Health Maintenance Due Date Last Done Comments Breast Cancer Screening-Mammogram 1971 Colon Cancer Screening-Colonoscopy 1971 Depression Screening 1971 Hepatitis C Screening 1971 DTaP/Tdap/Td Vaccine (1 - Tdap) 12/01/1982 Hepatitis B Screening 12/01/1989 Regular Well Visit/Exam 18-64 12/01/1989 Zoster Vaccine (1 of 2) 12/01/2021 Covid-19 Vaccine (3 - 2023-2 5 season) 2023 07/12/2020, 06/21/2020 Influenza Vaccine (#1) 2023 Pneumococcal vaccine <65 Aged Out No longer eligible based on patient's age to complete this topic Procedures Procedure Name Priority Date/Time Associated Diagnosis Comments ECG 12-LEAD Routine 06/09/2024 4:[address] ASSISTANT Morbid obesity with body mass index (BMI) of 40.0 to 49.9 (HCC) Essential (primary) hypertension EGFR Routine 06/06/2024 9:[address] ASSISTANT Morbid obesity with body mass index (BMI) of 40.0 to 49.9 (HCC) Essential (primary) hypertension DIFFERENTIAL AUTO Routine 06/06/2024 9:[address] ASSISTANT Morbid obesity with body mass index (BMI) of 40.0 to 49.9 (HCC) Essential (primary) hypertension CBC WITH AUTO DIFFERENTIAL Routine 06/06/2024 9:[address] ASSISTANT Morbid obesity with body mass index (BMI) of 40.0 to 49.9 (HCC) Essential (primary) hypertension COMPREHENSIVE METABOLIC PANEL Routine 06/06/2024 9:[address] ASSISTANT Morbid obesity with body mass index (BMI) of 40.0 to 49.9 (HCC) Essential (primary) hypertension HEMOGLOBIN A1C Routine 06/06/2024 9:[address] ASSISTANT Morbid obesity with body mass index (BMI) of 40.0 to 49.9 (HCC) Essential (primary) hypertension TSH Routine 06/06/2024 9:[address] ASSISTANT Morbid obesity with body mass index (BMI) of 40.0 to 49.9 (HCC) Essential (primary) hypertension LIPID PANEL Routine 06/06/2024 9:[address] ASSISTANT Morbid obesity with body mass index (BMI) of 40.0 to 49.9 (HCC) Essential (primary) hypertension PTH Routine 06/06/2024 9:[address] ASSISTANT Morbid obesity with body mass index (BMI) of 40.0 to 49.9 (HCC) Essential (primary) hypertension VITAMIN D 25 HYDROXY Routine 06/06/2024 9:[address] ASSISTANT Morbid obesity with body mass index (BMI) of 40.0 to 49.9 (HCC) Essential (primary) hypertension VITAMIN B12 Routine 06/06/2024 9:[address] ASSISTANT Morbid obesity with body mass index (BMI) of 40.0 to 49.9 (HCC) Essential (primary) hypertension IRON PROFILE W/ IBC Routine 06/06/2024 9 :[address] ASSISTANT Morbid obesity with body mass index (BMI) of 40.0 to 49.9 (HCC) Essential (primary) hypertension FERRITIN Routine 06/06/2024 9:[address] ASSISTANT Morbid obesity with body mass index (BMI) of 40.0 to 49.9 (HCC) Essential (primary) hypertension H. PYLORI BREATH TEST Routine 06/06/2024 9:[address] ASSISTANT Morbid obesity with body mass index (BMI) of 40.0 to 49.9 (HCC) Essential (primary) hypertension NICOTINE METABOLITE SCREEN, URINE Routine 06/06/2024 9:[address] ASSISTANT Morbid obesity with body mass index (BMI) of 40.0 to 49.9 (HCC) Essential (primary) hypertension from Last 3 Months Results * ECG 12 lead (06/09/2024 4:[address] ASSISTANT) Pathologist [facility] Ventricular Rate EKG/Min 86 BPM [facility] Atrial Rate 86 BPM [facility] AK-Interval (MSEC) 198 ms [facility] QRS-Interval (MSEC) 70 ms [facility] QT-Interval (MSEC) 350 ms [facility] QTc 418 ms [facility] P [place] 43 degrees [facility] R [place] -6 degrees [facility] T [place] 11 degrees [facility] Diagnosis Normal sinus rhythm Normal ECG No previous ECGs available Confirmed by SULTAN SORTO M.D. ([id number]) on 06/09/2024 11:13:40 PM [facility] 06/09/2024 4:[address] ASSISTANT 06/09/2024 11:13 PM [facility] us Lucretia Marie MOT[employer] VE[employer] ASSEMBLY SUPERVISOR ECG ORDERABLES Monse leon Result [facility] * eGFR (06/06/2024 9:[address] ASSISTANT) Pathologist [facility] eGFR >90 >=60 mL/min/1. 73 m2 Comment: Interpretive Data Reference Interval Normal >/= 90 mL/min/1.73m2 Mildly decreased* 60 - 89 mL/min/1.73m2 Mildly to moderately decreased 45 - 59 mL/min/1.73m2 Moderately to severely decreased 30 - 44 mL/min/1.73m2 Severely decreased 15 - 29 mL/min/1.73m2 Kidney Failure < 15 mL/min/1.73m2 *Relative to young adult level Estimated glomerular filtration rate is determined by the 2020 CKD-EPI equation recommended by the National Kidney Foundation (A Unifying Approach to GFR Estimation: Recommendations of the NKF-ASK Task Force on Reassessing the Inclusion of Race in Diagnosing Kidney Disease, JASN 2020). The CKD-EPI equation should not be used for patients with unstable renal function and has not been validated in children and those over 70. Current interpretive data was last reviewed 2021. Blood 06/06/2024 9:[address] ASSISTANT 06/06/2024 9:[address] ASSISTANT us Lucretia Marie MOT[employer] VEH[employer] ASSEMBLY SUPERVISOR LAB BLOOD ORDERABLES Final Result [facility] [address] [facility] Department [place] [address] * (ABNORMAL) Differential, auto (06/06/2024 9:[address] ASSISTANT) Neutrophil abs 7.1(H) 1.5 - 6.5 K/cumm Imm gran abs 0.0 0.0 - 0.1 K/cumm [facility] Lymphocyte abs 1.5 0.8 - 3.3 K/cumm [facility] Monocyte abs 0.4 0.2 - 0.8 K/cumm [facility] Eosinophil abs 0.3 0.0 - 0.5 K/cumm [facility] Basophil abs 0.1 0.0 - 0.1 K/cumm [facility] Neutrophil pct 75.4 % [facility] Comment: Interpretive Data Percent cell count reference ranges are not reported, since discordance with absolute values may lead to misinterpretation of CBC data. Current Interpretive Data was last revised on 2017. Imm gran pct 0.2 % [facility] Comment: Interpretive Data Percent cell count reference ranges are not reported, since discordance with absolute values may lead to misinterpretation of CBC data. Current Interpretive Data was last revised on 2017. Lymphocyte pct 15.9 % [facility] Comment: Interpretive Data Percent cell count reference ranges are not reported, since discordance with absolute values may lead to misinterpretation of CBC data. Current Interpretive Data was last revised on 2017. Monocyte pct 4.7 % [facility] Comment: Interpretive Data Percent cell count reference ranges are not reported, since discordance with absolute values may lead to misinterpretation of CBC data. Current Interpretive Data was last revised on 2017. Eosinophil pct 2.8 % [facility] Comment: Interpretive Data Percent cell count reference ranges are not reported, since discordance with absolute values may lead to misinterpretation of CBC data. Current Interpretive Data was last revised on 2017. Basophil pct 1.0 % [facility] Comment: Interpretive Data Percent cell count reference ranges are not reported, since discordance with absolute values may lead to misinterpretation of CBC data. Current Interpretive Data was last revised on 2017. Blood 06/06/2024 9:[address] ASSISTANT 06/06/2024 9:[address] ASSISTANT Lucretia Marie MOT[employer]SEMBL[employer] SUPERVISOR LAB BLOOD ORDERABLES Final Result Performing Organization Address [facility]/ZIP Co de Phone Number [address] [place] [address] * (ABNORMAL) Iron profile w/ IBC (06/06/2024 9:[address] ASSISTANT) Pathologist [facility] Iron 54 35 - 145 mcg/dL TIBC 291 250 - 400 mcg/dL [facility] Transferrin saturation 19(L) 20 - 50 % [facility] Blood 06/06/2024 9:[address] ASSISTANT 06/06/2024 9:[address] ASSISTANT Lucretia Marie NP LAB BLOOD ORDERABLES Final Result Performing Organization Address City/[facility]/ZIP Co de Phone Number [address] [place] [address] * CBC with auto differential (06/06/2024 9:[address] ASSISTANT) Pathologist [facility] WBC 9.4 3.8 - 9.9 K/cumm Hgb 13.4 11.9 - 15.5 g/dL [facility] Hct 41.3 35.6 - 45.5 % [facility] Plt 263 150 - 400 K/cumm [facility] MPV 9.2 9.1 - 12.3 fL [facility] RBC 4.62 3.90 - 5.20 M/cumm [facility] MCV 89.4 81.3 - 96.4 fL [facility] MCH 29.0 27.1 - 33.3 pg [facility] MCHC 32.4 32.3 - 35.7 g/dL [facility] RDW CV 13.4 11.1 - 14.9 % [facility] RDW SD 43.6 35.7 - 48.1 fL [facility] NRBC abs 0.00 0.00 - 0.01 K/cumm [facility] Blood 06/06/2024 9:[address] ASSISTANT 06/06/2024 9:[address] ASSISTANT us Lucretia Marie NP LAB BLOOD ORDERABLES Final Result Performing Organization Address City/[facility]/ZIP Co de Phone Number [address] [place] [address] * (ABNORMAL) Vitamin D 25 hydroxy (06/06/2024 9:[address] ASSISTANT) Vitamin D 25-OH 19.0(L) 30.0 - 80.0 ng/mL Blood 06/06/2024 9:[address] ASSISTANT 06/06/2024 9:[address] ASSISTANT us Lucretia Marie MOT[employer] ASSEMBL[employer] SUPERVISOR LAB BLOOD ORDERABLES Final Result Performing Organization Address City/[facility]/ZIP Co de Phone Number [address] [place] [address] * TSH (06/06/2024 9:[address] ASSISTANT) Thyroid Stimulating Hormone 0.93 0.30 - 4.20 mcIUnit/mL Blood 06/06/2024 9:[address] ASSISTANT 06/06/2024 9:[address] ASSISTANT us Lucretia Marie [employer]SEMBL[employer] SUPERVISOR LAB BLOOD ORDERABLES Final Result Performing Organization Address City/[facility]/ZIP Co de Phone Number [address] [place] [address] * PTH (06/06/2024 9:[address] ASSISTANT) Pathologist [facility] PTH 42 15 - 65 pg/mL Blood 06/06/2024 9:[address] ASSISTANT 06/06/2024 9:[address] ASSISTANT Lucretia Marie NP LAB BLOOD ORDERABLES Final Result Performing Organization Address City/[facility] Co de Phone Number [place] [address] [place] [address] * (ABNORMAL) Hemoglobin A1c (06/06/2024 9:[address] ASSISTANT) [facility] Hgb A1C 5.7(H) 4.0 - 5.6 % Estimated Average Glucose 117 mg/dL [facility] Comment: The ADA recommends reporting an estimated Average Glucose (eAG) with all Hemoglobin A1c results using the equation derived from a study of 507 normal and diabetic adults. Minority populations were underrepresented and children were not included. (Diabetes Care 31:3155-3987, 2008). The eAG is not equivalent to a fasting glucose. Blood 06/06/2024 9:[address] ASSISTANT 06/06/2024 9:[address] ASSISTANT Lucretia Marie NP LAB BLOOD ORDERABLES Final Result Performing Organization Address City/[facility] Co de Phone Number [place] [address] [facility] [place] [address] * (ABNORMAL) Ferritin (06/06/2024 9:[address] ASSISTANT) [facility] Ferritin 234(H) 15 - 150 ng/mL Blood 06/06/2024 9:[address] ASSISTANT 06/06/2024 9:[address] ASSISTANT Lucretia Marie NP LAB BLOOD ORDERABLES Final Result Performing Organization Address City/[facility]/ZIP Co de Phone Number [place] [address] [place] [address] * Vitamin B12 (06/06/2024 9:[address] ASSISTANT) Vitamin B12 670 230 - 1,250 pg/mL Blood 06/06/2024 9:[address] ASSISTANT 06/06/2024 9:[address] ASSISTANT Lucretia Marie NP LAB BLOOD ORDERABLES Final Result [facility] [address] [facility] Department [place] [address] * Lipid panel (06/06/2024 9:[address] ASSISTANT) Cholesterol 181 30 - 199 mg/dL Comment: Interpretive Data Ages < or = 19 years Acceptable: <170 mg/dL Borderline high: 170-199 mg/dL High: >or= 200 mg/dL Ages > or = 20 years Desirable: <200 mg/dL Borderline high: 200-239 mg/dL High: >or= 240 mg/dL Literature References: 1. Expert Panel on Integrated Guidelines for Cardiovascular Health and Risk Reduction in Children and Adolescents. Pediatrics 2011;128:S213 2. NCEP Expert Panel. Circulation 2004;110:227 Current Interpretive Data was last revised on 2017. Triglycerides 89 <=149 mg/dL [facility] Comment: Interpretive Data Ages < or = 9 years Acceptable: <75 mg/dL Borderline high: 75-99 mg/dL High: >or= 100 mg/dL Ages 10 to 20 years Acceptable: <90 mg/dL Borderline high: 90-129 mg/dL High: >or= 130 mg/dL Ages > or = 20 years Desirable: <150 mg/dL Borderline high: 150-199 mg/dL High: 200-499 mg/dL Very high: >or= 499 mg/dL Literature References: 1. Expert Panel on Integrated Guidelines for Cardiovascular Health and Risk Reduction in Children and Adolescents. Pediatrics 2011;128:S213 2. NCEP Expert Panel. Circulation 2004;110:227 Current Interpretive Data was last revised on 2017. HDL 56 >=40 mg/dL [facility] FLORES Comment: Interpretive Data Ages < or = 19 years Acceptable: >45 mg/dL Borderline low: 40-45 mg/dL Low: <40 mg/dL Ages > or = 20 years Desirable: >or= 60 mg/dL Low: <40 mg/dL Literature References: 1. Expert Panel on Integrated Guidelines for Cardiovascular Health and Risk Reduction in Children and Adolescents. Pediatrics 2011;128:S213 2. NCEP Expert Panel. Circulation 2004;110:227 Current Interpretive Data was last revised on 2017. LDL, calculated 109 <=129 mg/dL [facility]IA FLORES Comment: Interpretive Data Ages < or = 19 years Acceptable: <110 mg/dL Borderline high: 110-129 mg/dL High: >or= 130 mg/dL Ages > or = 20 years Optimal: <100 mg/dL Near optimal: 100-129 mg/dL Borderline high: 130-159 mg/dL High: >160 mg/dL Calculated using the Og LDL-C estimating equation. This equation was implemented on 2023. Prior to this date LDL-C was estimated using the Friedewald equation. Literature References: 1. Expert Panel on Integrated Guidelines for Cardiovascular Health and Risk Reduction in Children and Adolescents. Pediatrics 2011;128:S213 2. NCEP Expert Panel. Circulation 2004;110:227 3. Og Kramer et al. IFEANYI Cardiol. 2020 August 28;5(5):540-548. doi: 10.1001/jamacardio.2020.0013 Current Interpretive Data was last revised on 2023. Non-HDL Cholesterol 125 mg/dL [facility] FLORES Comment: Interpretive Data Ages < or = 19 years Acceptable: <120 mg/dL Borderline high: 120-144 mg/dL High: >145 mg/dL Ages > or = 20 years When triglycerides are >200 mg/dL, Non-HDL cholesterol is a secondary target of therapy with treatment goals that are 30 mg/dL greater than the LDL cholesterol target. Literature References: 1. Expert Panel on Integrated Guidelines for Cardiovascular Health and Risk Reduction in Children and Adolescents. Pediatrics 2011;128:S213 2. NCEP Expert Panel. Circulation 2004;110:227 Current Interpretive Data was last revised on 2017. Chol/HDL ratio 3 [facility]IA FLORES Blood 06/06/2024 9:[address] ASSISTANT 06/06/2024 9:[address] ASSISTANT Lucretia Marie MOT[employer] VEH[employer] ASSEMBLY SUPERVISOR LAB BLOOD ORDERABLES Final Result [facility] [address] [facility] Department [place] [address] * (ABNORMAL) Comprehensive metabolic panel (06/06/2024 9:[address] ASSISTANT) Sodium 141 135 - 145 mmol/L Potassium, pl 4.3 3.3 - 4.9 mmol/L [facility] Chloride 105 97 - 110 mmol/L [facility] CO2 26 22 - 32 mmol/L [facility] Anion gap 10 2 - 15 mmol/L [facility] BUN 13 6 - 25 mg/dL [facility] Creatinine 0.69 0.60 - 1.10 mg/dL [facility] Glucose 95 70 - 199 mg/dL [facility] Comment: Interpretive Data Fasting glucose >/= 126 mg/dl is diagnostic for diabetes. Fasting is defined as no caloric intake for at least 8 hours. Fasting glucose between 100 mg/dl to 125 mg/dl is diagnostic of prediabetes. In a patient with classic symptoms of hyperglycemia or hyperglycemic crisis, a random glucose >/= 200 mg/dl is diagnostic for diabetes. In the absence of unequivocal hyperglycemia, results should be confirmed by repeat testing. The classification and Diagnosis of Diabetes Diabetes Care 2021; 46: S19-S40. Current interpretive data was last revised 2022. Calcium 9.6 8.5 - 10.3 mg/dL [facility] Bilirubin, total 0.6 0.1 - 1.2 mg/dL [facility] Protein, pl 7.1 6.5 - 8.5 g/dL [facility] Albumin 4.2 3.5 - 5.0 g/dL [facility] Alk phos 153(H) 40 - 130 Units/L [facility] ALT 50(H) 7 - 45 Units/L [facility] AST 31 10 - 45 Units/L [facility] Blood 06/06/2024 9:[address] ASSISTANT 06/06/2024 9:[address] ASSISTANT Lucretia Marie NP LAB BLOOD ORDERABLES Final Result Performing Organization Address City/[facility] Co de Phone Number [facility]UDIA [address] [address] * H. pylori breath test (06/06/2024 9:[address] ASSISTANT) H. pylori, breath test Negative Negative [facility] Comment: Result indicates the absence of current Helicobacter pylori infection. Test Performed by: [facility] [place] [address] Vocational Training Instructor: Kaylyn Espinoza Ph.D.; CLIA# [id number] Breath 06/06/2024 9:[address] ASSISTANT 06/06/2024 9:[address] ASSISTANT Lucretia Marie NP LAB BODY FLUIDS AND STOOLS ORDERABLES Final Result Performing Organization Address [facility] Co de Phone Number CLAUDIA [address] [address] [facility] * Nicotine metabolite screen, urine (06/06/2024 9:[address] ASSISTANT) Nicotine, ur <5.0 <5.0 ng/mL [facility] Cotinine, ur <5.0 <5.0 ng/mL [facility] Anabasine ur <2.0 <2.0 ng/mL [facility] Comment: ADDITIONAL INFORMATION This test was developed and its performance characteristics determined by [facility] in a manner consistent with CLIA requirements. This test has not been cleared or approved by the U.S. Food and Drug Administration. Test Performed by: [facility] [place] [id number] Vocational Training Instructor: Kaylyn Espinoza Ph.D.; CLIA# [id number] Nornicotine, ur <2.0 <2.0 ng/mL [facility] Urine 06/06/2024 9:[address] ASSISTANT 06/06/2024 9:[address] ASSISTANT us Lucretia Oliva Marie MOTOR VEH[employer] ASSEMBLY SUPERVISOR LAB URINE ORDERABLES Final Result [facility] [address] [facility] Department [place] [address] Rodrigez ref Lab from Last 3 Months Insurance [facility] [facility] PPO Care Teams Social Service Manager Relationship Specialty Start Date End Date Cedric Esqueda MD [address] [facility] [address] PCP - General Family Medicine 01/04/21 Avril Gongora NP [address] [place] [address] Nurse Practitioner Family Practice 01/15/24
--- OUTSIDE RECORDS SUMMARY | 2024-07-17 10:38 | XMS_ITS | Referral Summary ---
Author Organization [facility] [[email or web address]] [address] Address [address] [place] [address] Care Team Providers Care Emergency Service Restorer Name Role Phone Cedric Esqueda MD Primary Care Prov ider Avril Gongora NP Unavailable Encounters Date Type Department Care Team Description 07/16/2024 8:30 AM CDT Clinical Support [facility] Diabetes and Nutrition [address] [place] [address] [address] [place] [address] Morbid obesity with body mass index (BMI) of 40.0 to 49.9 (HCC) (Primary Dx); Essential (primary) hypertension 06/20/2024 Plan of Care Documentation [facility] Physical Therapy [address] [place] [phone] 06/20/2024 9:00 AM VEHICLE SERVICE AGENT Therapy [facility] Physical Therapy [address] [place] [phone] Elizabeth Tenorio DPT Morbid obesity with body mass index (BMI) of 40.0 to 49.9 (HCC) (Primary Dx); Essential (primary) hypertension 06/13/2024 Orders Only [facility] Minimally Invasive Surgery [address] [place] [address] Medical Office Building [address] [place] [phone] Lucretia Marie NP Morbid obesity with body mass index (BMI) of 40.0 to 49.9 (HCC) (Primary Dx); Essential (primary) hypertension 06/11/2024 11:00 AM VEHICLE SERVICE AGENT Telemedicine [facility] Pain Management [address] [place] [phone] Arvind Dunlap, PhD Morbid obesity (HCC) (Primary Dx); Morbid obesity with body mass index (BMI) of 40.0 to 49.9 (HCC); Essential (primary) hypertension; No diagnosis on Turlock I 06/10/2024 8:30 AM VEHICLE SERVICE AGENT Clinical Support [facility] Diabetes and Nutrition [address] [facility] [address] [place] [address] Morbid obesity with body mass index (BMI) of 40.0 to 49.9 (HCC); Essential (primary) hypertension 06/09/2024 4:07 PM VEHICLE SERVICE AGENT - 06/09/2024 11:59 PM VEHICLE SERVICE AGENT Hospital Encounter [facility] Cardiac Testing [address] [place] [address] Morbid obesity with body mass index (BMI) of 40.0 to 49.9 (HCC); Essential (primary) hypertension Discharge Disposition: Discharge to home or self care 06/06/2024 8:35 AM VEHICLE SERVICE AGENT Lab [facility] [address] [place] [address] Morbid obesity with body mass index (BMI) of 40.0 to 49.9 (HCC); Essential (primary) hypertension 06/04/2024 4:00 PM VEHICLE SERVICE AGENT Office Visit [facility] Minimally Invasive Surgery [address] [facility] Medical Office Building [address] [place] [phone] Lucretia Marie NP Morbid obesity with body mass index (BMI) of 40.0 to 49.9 (HCC); Essential (primary) hypertension from Last 3 Months Allergies Active Allergy Reactions Criticality Noted Date [...] Noted Date Diagnosed Date No diagnosis on Turlock I 06/11/2024 Essential (primary) hypertension 06/11/2024 Morbid obesity with body mass index (BMI) of 40. 0 to 49.9 06/11/2024 Morbid obesity 06/10/2024 History of partial hysterectomy 06/04/2024 History of cholecystectomy 06/04/2024 History of appendectomy 06/04/2024 History of tonsillectomy 06/04/2024 History of adenoidectomy 06/04/2024 Arthralgia of right knee 05/28/2023 Vestibular migraine 08/15/2021 Dizziness and giddiness 02/23/2021 Social History Tobacco Use Types Packs/Day Years [...] Orientation Straight 08/15/2021 6: 30 AM CDT Last Filed Vital Signs Vital Sign Reading Time Taken Comments Blood Pressure 130/76 06/20/2024 9:15 AM VEHICLE SERVICE AGENT Pulse 96 06/20/2024 9:15 AM VEHICLE SERVICE AGENT Temperature 36.6 C (97.8 F) 09/28/2022 9:02 AM CDT Respiratory Rate 20 09/28/2022 9:02 AM CDT Oxygen Saturation 99% 06/04/2024 3:4 7 PM VEHICLE SERVICE AGENT Inhaled Oxygen Concentration - - Weight 129.5 kg (285 lb 9.6 oz) 07/16/2024 8:46 AM CDT standing wt in office Height 165.1 cm (5' 5 ) 07/16/2024 8:46 AM CDT Body Mass Index 47.53 07/16/2024 8:46 AM CDT Plan of Treatment Not on file Procedures Procedure Name Priority Date/Time Associated Diagnosis Comments ECG 12-LEAD Routine 06/09/2024 4:16 PM VEHICLE SERVICE AGENT Morbid obesity with body mass index (BMI) of 40.0 to 49.9 (HCC) Essential (primary) hypertension EGFR Routine 06/06/2024 9:10 AM VEHICLE SERVICE AGENT Morbid obesity with body mass index (BMI) of 40.0 to 49.9 (HCC) Essential (primary) hypertension DIFFERENTIAL AUTO Routine 06/06/2024 9:1 0 AM VEHICLE SERVICE AGENT Morbid obesity with body mass index (BMI) of 40.0 to 49.9 (HCC) Essential (primary) hypertension CBC WITH AUTO DIFFERENTIAL Routine 06/06/2024 9:10 AM VEHICLE SERVICE AGENT Morbid obesity with body mass index (BMI) of 40.0 to 49.9 (HCC) Essential (primary) hypertension COMPREHENSIVE METABOLIC PANEL Routine 06/06/2024 9:10 AM VEHICLE SERVICE AGENT Morbid obesity with body mass index (BMI) of 40.0 to 49.9 (HCC) Essential (primary) hypertension HEMOGLOBIN A1C Routine 06/06/2024 9:10 AM VEHICLE SERVICE AGENT Morbid obesity with body mass index (BMI) of 40.0 to 49.9 (HCC) Essential (primary) hypertension TSH Routine 06/06/2024 9:10 AM VEHICLE SERVICE AGENT Morbid obesity with body mass index (BMI) of 40.0 to 49.9 (HCC) Essential (primary) hypertension LIPID PANEL Routine 06/06/2024 9:10 AM VEHICLE SERVICE AGENT Morbid obesity with body mass index (BMI) of 40.0 to 49.9 (HCC) Essential (primary) hypertension PTH Routine 06/06/2024 9:10 AM VEHICLE SERVICE AGENT Morbid obesity with body mass index (BMI) of 40.0 to 49.9 (HCC) Essential (primary) hypertension VITAMIN D 25 HYDROXY Routine 06/06/2024 9:10 AM VEHICLE SERVICE AGENT Morbid obesity with body mass index (BMI) of 40.0 to 49.9 (HCC) Essential (primary) hypertension VITAMIN B12 Routine 06/06/2024 9:10 AM VEHICLE SERVICE AGENT Morbid obesity with body mass index (BMI) of 40.0 to 49.9 (HCC) Essential (primary) hypertension IRON PROFILE W/ IBC Routine 06/06/2024 9 :10 AM VEHICLE SERVICE AGENT Morbid obesity with body mass index (BMI) of 40.0 to 49.9 (HCC) Essential (primary) hypertension FERRITIN Routine 06/06/2024 9:10 AM VEHICLE SERVICE AGENT Morbid obesity with body mass index (BMI) of 40.0 to 49.9 (HCC) Essential (primary) hypertension H. PYLORI BREATH TEST Routine 06/06/2024 9:00 AM VEHICLE SERVICE AGENT Morbid obesity with body mass index (BMI) of 40.0 to 49.9 (HCC) Essential (primary) hypertension NICOTINE METABOLITE SCREEN, URINE Routine 06/06/2024 9:00 AM VEHICLE SERVICE AGENT Morbid obesity with body mass index (BMI) of 40.0 to 49.9 (HCC) Essential (primary) hypertension from Last 3 Months Results * ECG 12 lead (06/09/2024 4:16 PM VEHICLE SERVICE AGENT) Ventricular Rate EKG/Min 86 BPM [facility] Atrial Rate 86 BPM [facility] MD-Interval (MSEC) 198 ms [facility] QRS-Interval (MSEC) 70 ms [facility] QT-Interval (MSEC) 350 ms [facility] QTc 418 ms [facility] P Turlock 43 degrees [facility] R Turlock -6 degrees [facility] T Turlock 11 degrees [facility] Diagnosis Normal sinus rhythm Normal ECG No previous ECGs available Confirmed by SULTAN SORTO M.D. ([id number]) on 06/09/2024 11:13:40 PM [facility] 06/09/2024 4:16 PM VEHICLE SERVICE AGENT 06/09/2024 11:13 PM VEHICLE SERVICE AGENT us Lucretia Marie AUDITOR MED[employer] CLAIMS ECG ORDERABLES Monse l Result [facility] * eGFR (06/06/2024 9:10 AM VEHICLE SERVICE AGENT) eGFR >90 >=60 mL/min/1. 73 m2 Comment: [...] last reviewed 2021. Blood 06/06/2024 9:10 AM VEHICLE SERVICE AGENT 06/06/2024 9:13 AM VEHICLE SERVICE AGENT us Lucretia Marie NP LAB BLOOD ORDERABLES Final Result CLAUDIA [address] [facility] Department [place] [address] * (ABNORMAL) Differential, auto (06/06/2024 9:10 AM VEHICLE SERVICE AGENT) Neutrophil abs 7.1(H) 1.5 - 6.5 K/cumm Imm gran abs 0.0 0.0 - 0.1 K/cumm [facility] Lymphocyte abs 1.5 0.8 - 3.3 K/cumm [facility] Monocyte abs 0.4 0.2 - 0.8 K/cumm [facility] Eosinophil abs 0.3 0.0 - 0.5 K/cumm [facility] Basophil abs 0.1 0.0 - 0.1 K/cumm [facility] Neutrophil pct 75.4 % [facility] Comment: Interpretive Data Percent cell count reference ranges are not reported, since discordance with absolute values may lead to misinterpretation of CBC data. Current Interpretive Data was last revised on 2017. Imm gran pct 0.2 % [facility] Comment: Interpretive Data Percent cell count reference ranges are not reported, since discordance with absolute values may lead to misinterpretation of CBC data. Current Interpretive Data was last revised on 2017. Lymphocyte pct 15.9 % [facility] Comment: Interpretive Data Percent cell count reference ranges are not reported, since discordance with absolute values may lead to misinterpretation of CBC data. Current Interpretive Data was last revised on 2017. Monocyte pct 4.7 % [facility] Comment: Interpretive Data Percent cell count reference ranges are not reported, since discordance with absolute values may lead to misinterpretation of CBC data. Current Interpretive Data was last revised on 2017. Eosinophil pct 2.8 % [facility] Comment: Interpretive Data Percent cell count reference ranges are not reported, since discordance with absolute values may lead to misinterpretation of CBC data. Current Interpretive Data was last revised on 2017. Basophil pct 1.0 % [facility] Comment: Interpretive Data Percent cell count reference ranges are not reported, since discordance with absolute values may lead to misinterpretation of CBC data. Current Interpretive Data was last revised on 2017. Blood 06/06/2024 9:10 AM VEHICLE SERVICE AGENT 06/06/2024 9:13 AM VEHICLE SERVICE AGENT us Lucretia Marie NP LAB BLOOD ORDERABLES Final Result CLAUDIA [address] [place] [address] * (ABNORMAL) Iron profile w/ IBC (06/06/2024 9:10 AM VEHICLE SERVICE AGENT) [facility] Iron 54 35 - 145 mcg/dL TIBC 291 250 - 400 mcg/dL [facility] Transferrin saturation 19(L) 20 - 50 % [facility] Blood 06/06/2024 9:10 AM VEHICLE SERVICE AGENT 06/06/2024 9:13 AM VEHICLE SERVICE AGENT us Lucretia Marie AUDITOR MEDICAL CLAIMS LAB BLOOD ORDERABLES Final Result Performing Organization Address City/[facility]/ZIP Co de Phone Number [address] [place] [address] * CBC with auto differential (06/06/2024 9:10 AM VEHICLE SERVICE AGENT) [facility] WBC 9.4 3.8 - 9.9 K/cumm Hgb 13.4 11.9 - 15.5 g/dL [facility] Hct 41.3 35.6 - 45.5 % [facility] Plt 263 150 - 400 K/cumm [facility] MPV 9.2 9.1 - 12.3 fL [facility] RBC 4.62 3.90 - 5.20 M/cumm [facility] MCV 89.4 81.3 - 96.4 fL [facility] MCH 29.0 27.1 - 33.3 pg [facility] MCHC 32.4 32.3 - 35.7 g/dL [facility] RDW CV 13.4 11.1 - 14.9 % [facility] RDW SD 43.6 35.7 - 48.1 fL [facility] NRBC abs 0.00 0.00 - 0.01 K/cumm [facility] Blood 06/06/2024 9:10 AM VEHICLE SERVICE AGENT 06/06/2024 9:13 AM VEHICLE SERVICE AGENT us Lucretia Marie AUDITOR MEDICAL CLAIMS LAB BLOOD ORDERABLES Final Result Performing Organization Address City/[facility]/ZIP Co de Phone Number CLAUDIA [facility] [place] [address] * (ABNORMAL) Vitamin D 25 hydroxy (06/06/2024 9:10 AM VEHICLE SERVICE AGENT) [facility] Vitamin D 25-OH 19.0(L) 30.0 - 80.0 ng/mL Blood 06/06/2024 9:10 AM VEHICLE SERVICE AGENT 06/06/2024 9:13 AM VEHICLE SERVICE AGENT Lucretia Marie AUDITOR MEDICAL CLAIMS LAB BLOOD ORDERABLES Final Result Performing Organization Address [facility]/ZIP Co de Phone Number [address] [place] [address] * TSH (06/06/2024 9:10 AM VEHICLE SERVICE AGENT) [facility] Thyroid Stimulating Hormone 0.93 0.30 - 4.20 mcIUnit/mL Blood 06/06/2024 9:10 AM VEHICLE SERVICE AGENT 06/06/2024 9:13 AM VEHICLE SERVICE AGENT us Lucretia Marie AUDITOR MEDICAL CLAIMS LAB BLOOD ORDERABLES Final Result Performing Organization Address City/[facility] Co de Phone Number [address] [place] [address] * PTH (06/06/2024 9:10 AM VEHICLE SERVICE AGENT) [facility] PTH 42 15 - 65 pg/mL Blood 06/06/2024 9:10 AM VEHICLE SERVICE AGENT 06/06/2024 9:13 AM VEHICLE SERVICE AGENT Lucretia Marie AUDITOR MEDICAL CLAIMS LAB BLOOD ORDERABLES Final Result Performing Organization Address City/[facility] Co de Phone Number [address] [place] [address] * (ABNORMAL) Hemoglobin A1c (06/06/2024 9:10 AM VEHICLE SERVICE AGENT) [facility] Hgb A1C 5.7(H) 4.0 - 5.6 % Estimated Average Glucose 117 mg/dL CLAUDIA Comment: The ADA recommends reporting an estimated Average Glucose (eAG) with all Hemoglobin A1c results using the equation derived from a study of 507 normal and diabetic adults. Minority populations were underrepresented and children were not included. (Diabetes Care 31:1142-5884, 2008). The eAG is not equivalent to a fasting glucose. Blood 06/06/2024 9:10 AM VEHICLE SERVICE AGENT 06/06/2024 9:13 AM VEHICLE SERVICE AGENT us Lucretia Marie AUDITOR MEDICAL CLAIMS LAB BLOOD ORDERABLES Final Result Performing Organization Address [facility] Co de Phone Number SEBA[address] [place] [address] * (ABNORMAL) Ferritin (06/06/2024 9:10 AM VEHICLE SERVICE AGENT) Ferritin 234(H) 15 - 150 ng/mL Blood 06/06/2024 9:10 AM VEHICLE SERVICE AGENT 06/06/2024 9:13 AM VEHICLE SERVICE AGENT us Lucretia Marie AUDITOR MEDICAL CLAIMS LAB BLOOD ORDERABLES Final Result Performing Organization Address [facility] de Phone Number [address] [place] [address] * Vitamin B12 (06/06/2024 9:10 AM VEHICLE SERVICE AGENT) Vitamin B12 670 230 - 1,250 pg/mL Blood 06/06/2024 9:10 AM VEHICLE SERVICE AGENT 06/06/2024 9:13 AM VEHICLE SERVICE AGENT Lucretia Marie AUDITOR MEDICAL CLAIMS LAB BLOOD ORDERABLES Final Result Performing Organization Address [facility] de Phone Number [address] [place] [address] * Lipid panel (06/06/2024 9:10 AM VEHICLE SERVICE AGENT) Cholesterol 181 30 - 199 mg/dL Comment: [...] on 2017. HDL 56 >=40 mg/dL CLAUDIA Comment: Interpretive Data Ages < [...] 2017. LDL, calculated 109 <=129 mg/dL CLAUDIA Comment: Interpretive Data Ages < or = 19 years Acceptable: <110 mg/dL Borderline high: 110-129 mg/dL High: >or= 130 mg/dL Ages > or = 20 years Optimal: <100 mg/dL Near optimal: 100-129 mg/dL Borderline high: 130-159 mg/dL High: >160 mg/dL Calculated using the Foley LDL-C estimating equation. This equation was implemented [...] revised on 2023. Non-HDL Cholesterol 125 mg/dL [facility] Comment: Interpretive Data Ages < or = [...] last revised on 2017. Chol/HDL ratio 3 [facility] Blood 06/06/2024 9:10 AM VEHICLE SERVICE AGENT 06/06/2024 9:13 AM VEHICLE SERVICE AGENT Lucretia Marie NP LAB BLOOD ORDERABLES Final Result [facility] [address] [facility] Department [place] [address] * (ABNORMAL) Comprehensive metabolic panel (06/06/2024 9:10 AM VEHICLE SERVICE AGENT) Sodium 141 135 - 145 mmol/L Potassium, pl 4.3 3.3 - 4.9 mmol/L [facility] Chloride 105 97 - 110 mmol/L [facility] CO2 26 22 - 32 mmol/L [facility] Anion gap 10 2 - 15 mmol/L [facility] BUN 13 6 - 25 mg/dL [facility] Creatinine 0.69 0.60 - 1.10 mg/dL [facility] Glucose 95 70 - 199 mg/dL [facility] Comment: Interpretive Data Fasting glucose >/= [...] 2022. Calcium 9.6 8.5 - 10.3 mg/dL [facility] Bilirubin, total 0.6 0.1 - 1.2 mg/dL [facility] Protein, pl 7.1 6.5 - 8.5 g/dL [facility] Albumin 4.2 3.5 - 5.0 g/dL [facility] Alk phos 153(H) 40 - 130 Units/L [facility] ALT 50(H) 7 - 45 Units/L [facility] AST 31 10 - 45 Units/L [facility] Blood 06/06/2024 9:10 AM VEHICLE SERVICE AGENT 06/06/2024 9:13 AM VEHICLE SERVICE AGENT Lucretia Marie NP LAB BLOOD ORDERABLES Final Result Performing Organization Address City/State/[facility] Co de Phone Number CLAUDIA [address] [facility] [place] [address] * H. pylori breath test (06/06/2024 9:00 AM VEHICLE SERVICE AGENT) H. pylori, breath test Negative Negative [facility] Comment: Result indicates the absence of current Helicobacter pylori infection. Test Performed by: [facility] [address] [place] [address] Environmental Services Coordinator: Kaylyn Espinoza Ph.D.; CLIA# [id number] Breath 06/06/2024 9:00 AM VEHICLE SERVICE AGENT 06/06/2024 9:47 AM VEHICLE SERVICE AGENT Lucretia Marie NP LAB BODY FLUIDS AND STOOLS ORDERABLES Final Result Performing Organization Address City/[facility] de Phone Number CLAUDIA [facility] [place] [address] [facility] * Nicotine metabolite screen, urine (06/06/2024 9:00 AM VEHICLE SERVICE AGENT) Nicotine, ur <5.0 <5.0 ng/mL [facility] Cotinine, ur <5.0 <5.0 ng/mL [facility] Anabasine ur <2.0 <2.0 ng/mL [facility] Comment: ADDITIONAL INFORMATION This test was developed and its performance characteristics determined by [facility] in a manner consistent with CLIA requirements. This test has not been cleared or approved by the U.S. Food and Drug Administration. Test Performed by: [place] [id number] [place] [address] Environmental Services Coordinator: Kaylyn Espinoza Ph.D.; CLIA# [id number] Nornicotine, ur <2.0 <2.0 ng/mL [facility] Urine 06/06/2024 9:00 AM VEHICLE SERVICE AGENT 06/06/2024 9:19 AM VEHICLE SERVICE AGENT Lucretia Marie LAB URINE ORDERABLES Final Result Performing Organization Address [facility] de Phone Number CLAUDIA [address] [address] [facility] Lab from Last [address] [place] [address] [employer] [facility] PPO [facility] PPO Care Teams Emergency Service Restorer Relationship Specialty Start Date End Date Cedric Esqueda MD [address] [place] [address] PCP - General Family Medicine 01/04/21 Avril Gongora NP [address] [place] [address] Nurse Practitioner Family Practice 01/15/24
--- OUTSIDE RECORDS SUMMARY | 2024-07-17 10:38 | XMS_ITS | Clinical Summary ---
Author Organization [facility] Address [address] [place] [address] Care Team Providers Care Investments Manager Name Role Phone Unavailable Primary Care Provider Unavailabl e Social History Tobacco Use Types Packs/Day Years Used Date Smoking Tobacco: Never Assessed Comments Unknown Sex and Gender Information Value Date Recorded Sex Assigned at Not on file Legal Sex Female 6:20 PM CDT Gender Identity Not on file Sexual Orientation Not on file Plan of Treatment Health Maintenance Due Date Last Done Comments Cervical Cancer Screening Pa p Smear (Age 30 to 64) Every 3 Years 1971 Colorectal Cancer Screening Colonoscopy (10 Years) 1971 Annual Physical 12/01/1974 Hepatitis C 12/01/1989 DTaP, Tdap and Td Vaccines ( 1 - Tdap) 12/01/1990 Hepatitis B Vaccines (1 of 3 - 19+ 3-dose series) 12/01/1990 Cervical Cancer Screening Pa p with HPV Testing (Age 30 to 64) Every 5 Years 12/01/2001 Cervical Cancer Screening with HPV 12/01/2001 Mammogram Screening 2011 Zoster Vaccines (1 of 2) 12/01/2021 COVID-19 Vaccine (2023-2 5 season) 2023 Influenza Adult (#1) 2024 Meningococcal B Vaccine Aged Out No l onger eligible based on patient's age to complete this topic Meningococcal Vaccine Aged Out No monica charlie eligible based on patient's age to complete this topic Pneumococcal Vaccine: Pediat rics (0 to 5 Years) and At-Risk Patients (6 to 64 Years) Aged Out No longer eligible b ased on patient's age to complete this topic RSV Immunizations Under 20 Months Aged Out No longer eligible based on patient's age to complete this topic
--- NOTE | 2024-07-17 12:00 | NEURO_ITS ---
Clinical note: The patient is 53-year-old with complaints of paresthesias and weakness in both lower limbs and pain in the lower back for more than 2 years. On a brief neurological examination no focal muscle wasting or fasciculations were seen in the lower limbs. Summary of findings: 1. Left and right peroneal motor distal latency , amplitude and conduction velocities were within normal limits. 2. Left and right tibial motor distal latencies, amplitudes and conduction velocities were within normal limits. 3. Left and right medial plantar sensory distal latencies were normal however amplitudes were significantly decreased and conduction velocities are mildly decreased. 4. Left and right sural sensory distal latencies are mildly prolonged and left and normal on the right side, amplitude was also mildly decreased on the left and normal right side. Conduction velocities were mildly decreased. 5. Left tibial H-reflex was at the upper limits of normal and amplitude is mildly decreased with the right H-reflex was absent. 6. EMG nerve can study were performed were peripheral and paraspinal muscles and L3-S1 distribution were examined. No denervation changes seen. Motor unit amplitude, duration and recruitment pattern were within normal limits. Impression: EMG nerve can study of the lower limbs are suggestive of mild sensory, axonal, length-dependent peripheral neuropathy. Etiologic correlation is recommended. There is no evidence for myopathy or L3-S1 radiculopathy at this time. A negative examination would not rule out possibility of radiculopathy and hence if clinically relevant and radiographic correlation should be considered. Mery Estraad MD, FAAN, FAANEM Neurologist Nerve Conduction Studies Motor Nerve Results ? Latency Amplitude F-Lat Segment Distance CV Comment Site (ms) (mV) (ms) (cm) (m/s) Left Fibular (EDB) Motor Ankle 3.2 6.3 - - Pop Fossa 11.9 5.9 Pop Fossa-Ankle 380 44 Right Fibular (EDB) Motor Ankle 2.9 5.0 - - Pop Fossa 10.8 4.2 Pop Fossa-Ankle 360 46 Left Tibial (AHB) Motor Ankle 3.6 8.1 Knee 13.4 6.0 Knee-Ankle 400 41 Right Tibial (AHB) Motor Ankle 3.7 9.3 Knee 12.5 5.5 Knee-Ankle 380 43 Sensory Nerve Results ? Latency (Peak) Amplitude (P-P) Segment Distance CV Comment Site (ms) (?V) (cm) (m/s) Left Medial Plantar (Ortho) Sensory Great Toe-Med Mall 3.0 2 Great Toe-Med Mall 110 37 Right Medial Plantar (Ortho) Sensory Great Toe-Med Mall 3.2 5 Great Toe-Med Mall 115 36 Left Sural Sensory Calf-Lat Mall 4.1 8 Calf-Lat Mall 120 29 Right Sural Sensory Calf-Lat Mall 3.3 15 Calf-Lat Mall 120 36 H-Reflex Results ? M-Lat H Lat H Peak-Peak Amp M Peak-Peak Amp H-M Lat Site (ms) (ms) mV mV (ms) Left Tibial H-Reflex Pop Fossa - 34.6 2.9 - - Right Tibial H-Reflex Pop Fossa - NR - - NR Electromyography ?Side Muscle Nerve Ins Act Fibs Psw Amp Dur Recrt Comment Right BicepsFemS Sciatic Nml Nml Nml Nml Nml Nml Right Semimembranosus Sciatic Nml Nml Nml Nml Nml Nml Right AntTibialis Dp Br Fibular Nml Nml Nml Nml Nml Nml Right Gastroc Tibial Nml Nml Nml Nml Nml Nml Right VastusMed Femoral Nml Nml Nml Nml Nml Nml Left BicepsFemS Sciatic Nml Nml Nml Nml Nml Nml Left Semimembranosus Sciatic Nml Nml Nml Nml Nml Nml Left AntTibialis Dp Br Fibular Nml Nml Nml Nml Nml Nml Left Gastroc Tibial Nml Nml Nml Nml Nml Nml Left VastusMed Femoral Nml Nml Nml Nml Nml Nml Right L4 Parasp Rami Nml Nml Nml Nml Nml Nml Left L4 Parasp Rami Nml Nml Nml Nml Nml Nml Right L5 Parasp Rami Nml Nml Nml Nml Nml Nml Left L5 Parasp Rami Nml Nml Nml Nml Nml Nml MTDD
== END 2024-07-17 09:56 | disposition home or self-care (01) ==
PROVIDERS: PCP Nurse Practitioner Family; Visit Provider Psychiatry & Neurology Neurology
DX: G62.9 Polyneuropathy, unspecified (principal); E11.9 Type 2 diabetes mellitus without complications; G56.00 Carpal tunnel syndrome, unspecified upper limb; R90.89 Other abnormal findings on diagnostic imaging of central nervous system
CPT/HCPCS: 95886; 95910

== ENCOUNTER 2024-09-13 09:26 | Outpatient (CLI) | payer OTHER, BC, SELFPAY ==
--- OUTSIDE RECORDS SUMMARY | 2024-09-13 09:30 | XMS_ITS | Continuity of Care Document ---
Author Organization [facility] Address [address] [place] [address] [place] [id number] Phone Care Team Providers Care Logging Operations Inspector Name Role Phone Plascencia Carley MATTHEWS Unavailable Unavailable Procedures Procedure Date PT Re-evaluation Therapeutic Activities Therapeutic Exercise Neuromuscular Re-Ed Therapeutic Activities Neuromuscular Re-Ed Therapeutic Exercise Therapeutic Activities Neuromuscular Re-Ed Therapeutic Exercise Therapeutic Activities Neuromuscular Re-Ed Therapeutic Exercise Therapeutic Activities Neuromuscular Re-Ed Therapeutic Exercise Therapeutic Activities Neuromuscular Re-Ed Therapeutic Exercise Therapeutic Activities Neuromuscular Re-Ed Therapeutic Exercise Therapeutic Activities Neuromuscular Re-Ed Therapeutic Exercise Therapeutic Activities Neuromuscular Re-Ed Therapeutic Exercise Therapeutic Activities Neuromuscular Re-Ed Therapeutic Exercise Therapeutic Activities Neuromuscular Re-Ed Therapeutic Exercise Therapeutic Activities Neuromuscular Re-Ed Therapeutic Exercise Therapeutic Activities Neuromuscular Re-Ed Therapeutic Exercise Therapeutic Activities Neuromuscular Re-Ed Therapeutic Exercise Therapeutic Activities Neuromuscular Re-Ed Therapeutic Exercise Therapeutic Activities Neuromuscular Re-Ed Therapeutic Exercise Therapeutic Activities Neuromuscular Re-Ed Therapeutic Exercise Therapeutic Activities Neuromuscular Re-Ed Therapeutic Activities Neuromuscular Re-Ed Therapeutic Exercise Therapeutic Activities Neuromuscular Re-Ed Therapeutic Exercise Therapeutic Activities Neuromuscular Re-Ed Therapeutic Exercise Therapeutic Activities Neuromuscular Re-Ed Therapeutic Exercise PT Evaluation High Complexity Therapeutic Activities Neuromuscular Re-Ed Therapeutic Exercise Advance Directives Directive Yes / No Effective Date File Name No Information Encounters Encounter Description Practice Location Reason(s) For Visit Diagnoses Date Provider Providers Copied on Encounter [facility], [id number], tel:[phone] [facility] No Information Temo Howe. [address] [facility], [address], [facility], . tel:[phone] [facility] [place] [address], [id number], tel:[phone] [facility] No Information Temo Howe. [address] [facility], [facility] [address], [place], [facility], . tel:[phone] [facility], [place], [place], [id number], [place] tel:[phone] [facility] No Information Temo Howe. [address] [facility], [address], [place], [address], [place]. tel:[phone], [place], [place], [id number], [place] tel:[phone] [facility] No Information Temo Howe. [address] [facility], [address], [place], [address], [place]. tel:[phone], [place], [place], [id number], [place] tel:[phone] [facility] No Information Temo Howe. [address] [facility], [address], [place], [address], [place]. tel:[phone], [place], [place], [id number], [place] tel:[phone] [facility] No Information Temo Howe. [address] [facility], [address], [place], [address], [place]. tel:[phone], [place], [place], [id number], [place] tel:[phone] [facility] No Information Temo Howe. [address] [facility], [address], [place], [address], [place]. tel:[phone], [place], [place], [id number], [place] tel:[phone] [facility] No Information Temo Howe. [address] [facility], [address], [place], [address], [place]. tel:[phone], [place], [place], [id number], [place] tel:[phone] [facility] No Information Temo Howe. [address] [facility], [address], [place], [address], [place]. tel:[phone], [place], [place], [address], [place] tel:[phone] [facility] No Information Temo Howe. [address] [facility], [address], [place], [address], [place]. tel:[phone], [place], [place], [address], [place] tel:[phone] [facility] No Information Temo Howe. [address] [facility], [address], [place], [address], [place]. tel:[phone], [place], [place], [id number], [place] tel:[phone] [facility] No Information Temo Howe. [address] [facility], [address], [place], [address], [place]. tel:[phone], [place], [place], [id number], [place] tel:[phone] [facility] No Information Temo Howe. [address] [facility], [address], [place], [address], [place]. tel:[phone], [place], [place], [address], [place] tel:[phone] [facility] No Information Temo Howe. [address] [facility], [address], [place], [address], [place]. tel:[phone] [facility] [address], [place], [place], [id number], [place] tel:[phone] [facility] No Information Temo Howe. [address] [facility], [address], [place], [address], [place]. tel:[phone], [place], [place], [id number], [place] tel:[phone] [facility] No Information Temo Howe. [address] [facility], [address], [place], [address], [place]. tel:[phone], [place], [address], [place] tel:[phone] [facility] No Information Temo Howe. [address] [facility], [address], [place], [address], [place]. tel:[phone], [place], [place], [id number], [place] tel:[phone] [facility] No Information Temo Howe. [address] [facility], [address], [place], [address], [place]. tel:[phone], [place], [place], [address], [place] tel:[phone] [facility] No Information Temo Howe. [address] [facility], [address], [place], [address], [place]. tel:[phone], [place], [place], [address], [place] tel:[phone] [facility] No Information Temo Howe. [address] [facility], [address], [place], [address], [place]. tel:[phone] [facility], [address] [facility] [address], [place], [place], [id number], tel:[phone] [facility] No Information Temo Howe. [address] [facility], [facility] [address], [place], [facility], . tel:[phone], [place], [place], [id number], tel:[phone] [facility] No Information Temo Howe. [address] [facility], [facility] [address], [place], [facility], . tel:[phone] [facility] [address] [place] [address] [address], [place], [place], [id number], tel:[phone] [facility] No Information Temo Howe. [address] [place] [address], [facility] [address], [place], [facility], . tel:[phone] Family History Family Member Type Diagnosis Age At Onset No Information Payers Payer name Insurance type Covered alliance party ID Anusha barkley(shiva Alvarez [id number] Social History Type Description Quantity Date Captured Comments Alcohol Use Details Unknown Caffeine Use Details Unknown Tobacco Use Status Current non-smoker Smoking Status Never smoker Non-Smoking Tobacco Use Details : No Details Available : No Details Available Sex Female Gender Identity Female Chief Complaint And Reason For Visit No Information Reason For Referral Reason For Referral No Information History Of Present Illness Encounter Date Complaint History Of Prese nt Illness No Information Functional Status Date Functional Assessmen t No Information Instructions Date Instruction Additional Infor mation Dietary needs education Related to Overweight Prescribed activity/exercise edu cation Related to Overweight Assessments Type Assessment Date No Information Patient Care Teams Name Effective Dates (start - stop) Status Members No Information
--- OUTSIDE RECORDS SUMMARY | 2024-09-13 09:30 | XMS_ITS | Clinical Summary ---
Author Organization [facility] Address [address] [place] [address] Care Team Providers Care Physician Relations Specialist Name Role Phone Unavailable Primary Care Provider [...] Screening with HPV 12/01/2001 Mammogram Screening 2011 Pneumococcal Vaccine: 50+ Ye ars (1 of 1 - PCV) 12/01/2021 Zoster Vaccines (1 of 2) 12/01/2021 COVID-19 Vaccine ( - 2023-2 5 season) 2023 Meningococcal B Vaccine Aged Out No l onger eligible based on patient's age to complete this topic Meningococcal Vaccine Aged Out No monica charlie eligible based on patient's age to complete this topic RSV Immunizations Under 20 Months Aged Out No longer eligible based on patient's age to complete this topic
--- OUTSIDE RECORDS SUMMARY | 2024-09-13 09:30 | XMS_ITS | Encounter Summary ---
Author Organization [facility] Address [address] [facility] [address] [place] [address] Phone Care Team Providers Care Director Park Name Role Phone Cedric Esqueda MD Primary Care Prov ider Avril Gongora ECOTHERAPIST Unavailable [phone] Reason for Visit * Consultation (Routine) - Authorized Specialty Diagnoses / Procedures Referred By Jos ng Referred To Contact Bariatrics / Bariatric Surgery Diagnoses Body mass index 50.0-59.9, adult (HCC) Essential (primary) hypertension Avril Gongora, ECOTHERAPIST [address] [place] [address] Phone: tel: fax: [facility] (All Locations) Referral ID Status Reason Start Date Expiration Date Visits Requested Visits Authorized [id number] Authorized Specialty Services Required 01/15/2024 02/13/2025 12 12 Encounter Details Date Type Department Care Team (Late st Contact Info) Description 09/12/2024 9:30 AM CDT Office Visit [facility] Minimally Invasive Surgery [facility] Medical Office Building [address] [place] [address] Reno Enrique MD [address] [facility] [id number] [place] [address] Morbid obesity (HCC) (Primary Dx); Obstructive sleep apnea; Primary hypertension; Gastroesophageal reflux disease, unspecified whether esophagitis present Social History Tobacco Use Types Packs/Day Years Used Date Smoking Tobacco: Never Passive Smoke Exposure: Never Smokeless Tobacco: Never Tobacco Cessation:Counseling Given: Not Answered AUDIT-C Answer Date Recorded Q1: How often do you have a drink containing alc ohol? Monthly or less 09/12/2024 Q2: How many drinks containi ng alcohol do you have on a typical day when you are drinking? 1 or 2 09/12/2024 Q3: How often do you have si x or more drinks on one occasion? Never 09/12/2024 PHQ-2 Answer Date Recorded PHQ-2 Total Score 0 07/18/2024 Comments No Sex and Gender Information Value Date Recorded Sex Assigned at Not on file Legal Sex Female 1:43 PM CDT Gender Identity Female 08/15/2021 6:30 AM CDT Sexual Orientation Straight 08/15/2021 6: 30 AM CDT documented as of this encounter Last Filed Vital Signs Vital Sign Reading Time Taken Comments Blood Pressure 132/80 09/12/2024 9:23 AM CDT Pulse 73 09/12/2024 9:23 AM CDT Temperature 37 C (98.6 F) 09/12/2024 9:23 AM CDT Respiratory Rate - - Oxygen Saturation 92% 09/12/2024 9:23 AM CDT Inhaled Oxygen Concentration - - Weight 133.4 kg (294 lb) 09/12/2024 9:23 AM CDT Height 165.1 cm (5' 5 ) 09/12/2024 9:23 AM CDT Body Mass Index 48.92 09/12/2024 9:23 AM CDT documented in this encounter Functional Status * Audit-C Score Answer Date of Assessment Author 1 09/12/2024 9:23 AM CDT Angy Giordano MA * Question Answer Date of Assessment Author Q1: How often do you have a drink containing alcohol? Monthly or less 09/12/2024 9:23 AM CDT Maribell Giordano MA Q2: How many drinks containing alcohol do you have on a typical day when you are drinking? 1 or 2 09/12/2024 9:23 AM CDT Gertrude Giordano M A Q3: How often do you have six or more drinks on one occasion? Never 09/12/2024 9:23 AM CDT Gertrude Giordano M A documented as of this encounter Progress Notes * Reno Enrique MD - 09/12/2024 9:30 AM CDT [facility] Metabolic & Weight Loss Surgery Pre-Operative Bariatric Surgeon Visit CONSULT REQUESTED BY: Avril Gongora Ms. Beverley Terrell presents today for ongoing evaluation of clinically severe obesity. The patient is a 53 y.o. female who today weighs 133.4 kg (294 lb). Body mass index is 48.92 kg/mÂ².. She hasfailed previous medical management of her weight. She has obesity related comorbidities including obstructive sleep apnea (on CPAP), benign hypertension (1 med), GERD (regurgitation and vomiting wellcontrolled with BID omeprazole), and osteoarthritis (bilateral knees). She stopped taking semaglutide as she had no significant weight loss after 8 months. In clinic today measurements were Ht: 165.1 cm (5' 5 ) Wt: 133.4 kg (294 lb). Body mass index is 48.92 kg/mÂ². [place] body weight is Weight in (lb) to have BMI = 25: 149.9. The excess body weight interferes with activities of daily living and negatively impacts quality of life. After completing the evaluation process, the patient is interested in moving forward with bariatric surgery. PAST MEDICAL HISTORY: She has a past medical history of ANDRIA, HTN, GERD, osteoarthritis, Allergic rhinitis. PAST SURGICAL HISTORY: She has a past surgical history that includes Appendectomy, section, Partial hysterectomy,Tympanostomy tube placemen; Knee arthroscopy; and Cataract extraction. MEDICATIONS: She has a current medication list which includes the following prescription(s): losartan, venlafaxine xr, cyanocobalamin (vitamin b-12), vitamin D, and magnesium oxide. ALLERGIES: She is allergic to morphine. FAMILY HISTORY: Her family history includes Cancer in an other family member; Diabetes in her father and sister. SOCIAL HISTORY: She reports that she has never smoked. She has never been exposed to tobacco smoke. She has never used smokeless tobacco. Patient reports consuming alcoholic drinks monthly or less, with a daily consumption of 1 or 2 drinks. Patient denies daily consumption of 6 or more alcoholic drinks at one occasion. REVIEW OF SYSTEMS: A comprehensive review of systems was completed by the patient; and reviewed, signed, and scanned into the chart. Her COVID status is: vaccinated PHYSICAL EXAMINATION: Ht: 165.1 cm (5' 5 ) Wt: 133.4 kg (294 lb) BMI: Body mass index is 48.92 kg/mÂ². BP 132/80 Pulse 73 Temp 37 Â°C (98.6 Â°F) (Oral) Ht 165.1 cm (5' 5 ) Wt 133.4 kg (294 lb) SpO2 92% BMI 48.92 kg/mÂ² GENERAL: Morbidly obese individual in no acute distress. NEURO: Alert and oriented x3, mood and affect appropriate. HEENT: Pupils equal. EOMs grossly normal. NECK: Supple. Trachea midline. PULMONARY: Breathing comfortably on room air. No audible wheezes. CARDIOVASCULAR: Regular rate and rhythm. Palpable pedal pulses. No venous stasis changes. SKIN: Smooth and dry. No rashes. ABDOMEN: Central obesity. Soft, non-tender, no masses. No hepatomegaly, no splenomegaly. MUSCULOSKELETAL: Grossly normal range of motion. No limp. RESULTS: I have independently reviewed the pre-operative labs and EKG. These are significant for ferritin 234, transferrin 19, VitD 19, A1c 5.7%, EKG NSR. She has started vitamin D supplementation. The patient has not had an EGD. H Pylori negative. I have reviewed the evaluations from our wood machinist apprentice, psychologist and physical therapist and they have all agreed that the patient is an appropriate candidate for bariatric surgery. She has found an appropriate friend/family member to act as her bariatric head coach: Ruben Terrell - . ASSESSMENT AND PLAN: Patient Active Problem List Diagnosis Dizziness and giddiness Vestibular migraine Arthralgia of right knee History of partial hysterectomy History of cholecystectomy History of appendectomy History of tonsillectomy History of adenoidectomy Morbid obesity (HCC) No diagnosis on Hubbard I Essential (primary) hypertension Morbid obesity with BMI of 40.0-44.9, adult (HCC) Moderate obstructive sleep apnea Beverley Terrell is a pleasant 53 y.o. year old female who presents to clinic today for pre-operative evaluation for bariatric surgery. She has a history of morbid obesity and other comorbidities listed above. Her current Body mass index is 48.92 kg/mÂ²., making her an excellent candidate. She hasstarted taking Vitamin D supplementation based on her low levels and continue PT. We reviewed the surgical options of Wendy Y gastric bypass, sleeve gastrectomy, and duodenal switch.The patient ultimately has opted for a Laparoscopic Wendy-en-Y Gastric Bypass. We discussed the specific risks and benefits of the procedure and the patient understands and wishes to proceed. We will set her up for the surgery prior to obtaining appropriate insurance precertification. Jacobo Hughes MD General Surgery Resident: I have seen and examined the patient. I agree with the findings and plan of care as discussed with the resident/fellow. Reno Enrique MD gas pit worker Minimally Invasive Surgery Department of Surgery p: [phone] documented in this encounter Plan of Treatment Not on file documented as of this encounter Visit Diagnoses Diagnosis Morbid obesity (HCC)- Primary Morbid obesity Obstructive sleep apnea Obstructive sleep apnea (adult) (pediatric) Primary hypertension Unspecified essential hypertension Gastroesophageal reflux disease, unspecified whether esophagitis present documented in this encounter Care Teams Director Park Relationship Specialty Start Date End Date Cedric Esqueda MD [address] [place] [address] PCP - General Family Medicine 01/04/21 Avril Gongora NP [address] [place] [address] Nurse Practitioner Family Practice 01/15/24 documented as of this encounter
--- OUTSIDE RECORDS SUMMARY | 2024-09-13 09:30 | XMS_ITS | Encounter Summary ---
Author Organization [facility] Address [address] [facility] [address] [place] [address] Phone Care Team Providers Care Sales And Marketing Professional Name Role Phone Cedric Esqueda MD Primary Care Prov ider Avril Gongora NP Unavailable [phone] Reason for Visit * Reason Onset Date Comments Scheduling Appointments 09/08/2024 Encounter Details Date Type Department Care Team (Late st Contact Info) Description 09/08/2024 Telephone [facility] Advanced Medicine ([facility]) - [facility] Minimally Invasive Surgery [address] [facility] Advanced Medicine [address]th Floor, [place] [address] Reno Enrique MD [address] [facility] [id number] [place], [place] [id number] Scheduling Appointments Social History Tobacco Use Types Packs/Day Years [...] AM CDT documented as of this encounter Miscellaneous Notes * Telephone Encounter - Luis Miguel Chowdhury - 09/08/2024 2:21 PM CDT Patient Query: Was an attempt to transfer to the assigned clinical staff or backline? â€œYeCourtney suazo - no answer after 5 rings Reason for call?: Patient returned Courtney's call. This is regarding surgery appointment. Who is the caller: Patient What is the best number for them to contact for a call back: [phone] Last office visit: Visit date not found Date of Surgery: No surgery found documented in this encounter Plan of Treatment Not on file documented as of this encounter Visit Diagnoses Not on filedocumented in this encounter Care Teams Sales And Marketing Professional Relationship Specialty Start Date End Date Cedric Esqueda MD [address] [place] [address] PCP - General Family Medicine 01/04/21 Avril Gongora NP [address] [facility] [place] [address] Nurse Practitioner Family Practice 01/15/24 documented as of this encounter
--- OUTSIDE RECORDS SUMMARY | 2024-09-13 09:30 | XMS_ITS | Clinical Summary ---
Author Organization [facility] [address] Address [address] [place] [address] Care Team Providers Care Inventory Management Specialist Name Role Phone Cedric Esqueda MD Primary Care Prov ider Avril Gongora INSULATION BLANKET MAKER Unavailable [phone] Allergies Active Allergy Reactions Criticality Noted Date Comments Morphine Itching Low 02/21/2021 Medications cyanocobalamin , vitamin B-12, 1,000 mcg/mL drops Take by mouth Act lance losartan (COZAAR) 50 mg tablet Take 1 tablet (50 mg total) by mouth daily Active venlafaxine XR (EFFEXOR-XR) 75 mg 24 hr capsule Take 1 capsule (75 mg total) by mouth daily 05/27/19 25 Active magnesium oxide 200 mg magnesium tablet Take 1 tablet (200 mg of elemental magnesium total) by mouth as needed 05/06/19 22 Active SEMAGLUTIDE, WEIGHT LOSS, SUBQ Inject 2.4 mg under the skin every 7 days She states she is acquiring through life and has not had success. Active traZODone (DESYREL) 50 mg tablet Take 1-2 tablets (50-100 mg total) by mouth nightly 60 tablet 09/04/19 25 Active traZODone (DESYREL) 50 mg tablet Take 1-2 tablets (50-100 mg total) by mouth nightly 60 tablet 08/13/19 25 025 Discontinued Active Problems Problem Noted Date Diagnosed Date Moderate obstructive sleep apnea 08/30/2024 Overview (09/02/2024): - HST (08/14/24): AHI was 21.3 with O2 dominick of 82% - DME: C Assessment & Plan (09/02/2024 4:01 PM CDT): 1. Chronic, Poorly-controlled 2. Reviewed sleep study results 3. Discussed treatment options 4. Patient decided on CPAP therapy 5. Will place order No diagnosis on Kamrar I 06/11/2024 Essential (primary) hypertension 06/11/2024 Assessment & Plan (09/02/2024 4:00 PM CDT): 1. Chronic, well controlled 2. Discussed how treatment of her sleep apnea can improve her blood pressure 3. She will continue losartan Morbid obesity with BMI of 40.0-44.9, adult 05/31 Assessment & Plan (07/18/2024 9:38 AM CDT): 1. Chronic, poorly controlled however improving 2. Discussed how weight loss will help improve possible underlying sleep apnea 3. Continue semaglutide Morbid obesity 06/10/2024 History of partial hysterectomy 06/04/2024 History of cholecystectomy 06/04/2024 History of appendectomy 06/04/2024 History of tonsillectomy 06/04/2024 History of adenoidectomy 06/04/2024 Arthralgia of right knee 05/28/2023 Vestibular migraine 08/15/2021 Dizziness and giddiness 02/23/2021 Encounters Date Type Department Care Team Description 09/12/2024 9:30 AM CDT Office Visit [facility] - [facility] Minimally Invasive Surgery [address] [facility] Medical Office Building [address] [place] [address] Reno Enrique MD Morbid obesity (HCC) (Primary Dx); Obstructive sleep apnea; Primary hypertension; Gastroesophageal reflux disease, unspecified whether esophagitis present 09/08/2024 Telephone [facility]) - [facility] Minimally Invasive Surgery [address] [place] [address] 12th Floor, [place] [address] Reno Enrique MD Scheduling Appointments 09/08/2024 Telephone [facility] Minimally Invasive Surgery [address] [facility] Medical [facility] [address] [place] [phone] Mari Eddy CMA 09/04/2024 Telephone [facility] Medical Group at the [address] [place] [phone] Arvind Christianson MD Medical Question/Miscellane ous 09/02/2024 1:15 PM CDT Office Visit [facility] [address] [place] [address] [address] [place] [phone] Arvind Christianson MD Moderate obstructive sleep apnea (Primary Dx); Essential (primary) hypertension 08/14/2024 4:19 PM CDT - 08/14/2024 11:59 PM CDT Hospital Encounter [facility] [address] [facility] [address] [place] [address] Moderate obstructive sleep apnea Discharge Disposition: Discharge to home or self care 07/18/2024 9:30 AM CDT Office Visit [facility] Medical Group at the [address] [phone] Nakia Rankin, KODI Sleep disorder (Primary Dx); Morbid obesity with BMI of 40.0-44.9, adult (HCC) 07/16/2024 8:30 AM CDT Clinical Support [facility] Diabetes and Nutrition [address] [facility] [address] [place] [address] Morbid obesity with body mass index (BMI) of 40.0 to 49.9 (HCC) (Primary Dx); Essential (primary) hypertension 06/20/2024 9:00 AM CHANGE RELEASE MANAGER Therapy [facility] Physical Therapy [facility] [address] [place] [phone] Elizabeth Tenorio, BYRON Morbid obesity with body mass index (BMI) of 40.0 to 49.9 (HCC) (Primary Dx); Essential (primary) hypertension 06/20/2024 Plan of Care Documentation [facility] Physical Therapy [facility] [place] [address] from Last 3 Months Immunizations Immunization Administration Dates Next Due Influenza, Unspecified 01/29/2024 Surgical History Surgery Date Site/Laterality Comments TYMPANOSTOMY [...] F) 09/12/2024 9:23 AM CDT Respiratory Rate 22 07/18/2024 9:11 AM CDT Oxygen Saturation 92% 09/12/2024 9:23 AM CDT Inhaled Oxygen Concentration - - Weight 133.4 kg (294 lb) 09/12/2024 9:23 AM CDT Height 165.1 cm (5' 5 ) 09/12/2024 9:23 AM CDT Body Mass Index 48.92 09/12/2024 9:23 AM CDT Plan of Treatment Health Maintenance Due Date Last Done Comments Breast Cancer Screening-Mammogram 1971 Colon Cancer Screening-Colonoscopy 1971 Hepatitis C Screening 1971 DTaP/Tdap/Td Vaccine (1 - Tdap) 12/01/1982 Hepatitis B Screening 12/01/1989 Regular Well Visit/Exam 18-64 12/01/1989 Zoster Vaccine (1 of 2) 12/01/2021 Covid-19 Vaccine (3 - 2023-2 5 season) 2023 07/12/2020, 06/21/2020 Depression Screening 07/18/2025 07/18/2024 Influenza Vaccine Completed 01/29/2024 Pneumococcal vaccine <65 Aged Out No longer eligible based on patient's age to complete this topic Procedures Procedure Name Priority Date/Time Associated Diagnosis Comments PORTABLE/HOME SLEEP STUDY Routine 08/30/2024 Moderate obstructive sleep apnea from Last 3 Months Results * Portable/Home Sleep Study (08/30/2024) Impressions Arvind Christianson MD - 08/30/2024 Beverley Terrell Interpretation Completed: 08/30/2024 Home Sleep Testing Report Patient is a 53 y.o. , 290 lbs female. Patient was referred for diagnostic purposes. Patient underwent a diagnostic study utilizing an unattended, FDA-approved ResIowa Approach ApneaLink Air portable monitoring device. The patient was provided instruction of the device and its application by a registered blood bank technologist at the [facility] / [facility]. The study included channels of heart rate, oxygen saturation, respiratory effort, respiratory airflow, snoring, and body position. The study was analyzed by a registered blood bank technologist. The raw data was reviewed by a board-certified sleep physician. Tracing was of adequate quality. 11 hours and 50 minutes of recording time present. 7 hours 30 minutes of monitoring time present. 11 hours and 05 minutes of oxygen saturation evaluation present. Using a 4% desaturation rule, the apnea-hypopnea index (AHI) was 13.3. 2 apneas were scored. 98 obstructive hypopneas were scored using a 4% desaturation rule for obstructive hypopnea. 24 minutes of desaturation below 88% noted. The lowest desaturation obtained was 82%. The oxygen-desaturation index was 16.9. Using a 3% desaturation rule for obstructive hypopnea, 158 were scored. Apnea-hypopnea index was 21.3 using a 3% desaturation rule. Positional findings were not present. Minimum pulse rate was 53; average pulse rate was 85; and maximum pulse rate was 103. Diagnostic Impression: Obstructive sleep apnea (ANDRIA), technically of moderate degree by definition based on the AHI being between 15 and less than 30. Please note, a technically moderate degree of ANDRIA does not necessarily and/or accurately reflect the severity of a patient's symptoms or strength of recommendation to be treated for ANDRIA. We recommend that the patient follow-up with the [facility] to further discuss these findings and treatment options. If the patient is not a patient of the [facility], the patient should follow-up with the referring physician to discuss these findings and for the subsequent plan of care. [image] Arvind Christianson MD Internal/Sleep Medicine [facility] Medical Group at the [facility] Nakia Rankin NP SLEEP CENTER ORDERABLES Final Result from Last [address] [place] [address] [employer] [facility] [employer] [facility] Care Teams Inventory Management Specialist Relationship Specialty Start Date End Date Cedric Esqueda MD [address] [facility] [place] [address] PCP - General Family Medicine 01/04/21 Avril Gongora NP [facility] [place] [id number] Nurse Practitioner Family Practice 01/15/24
--- OUTSIDE RECORDS SUMMARY | 2024-09-13 09:30 | XMS_ITS | Referral Summary ---
Author Organization [facility] [address] [place] [address] Care Team Providers Care Naturopath Name Role Phone Cedric Esqueda MD Primary Care Prov ider Avril Gongora NP Unavailable [phone] Encounters Date Type Department Care Team Description 09/12/2024 9:30 AM CDT Office Visit [facility] Minimally Invasive Surgery [address] [place] [address] Medical Office Building [address] [place] [phone] Reno Enrique MD Morbid obesity (HCC) (Primary Dx); Obstructive sleep apnea; Primary hypertension; Gastroesophageal reflux disease, unspecified whether esophagitis present 09/08/2024 Telephone [facility] Minimally Invasive Surgery [address] [place] [address] 12th Floor, [place] [phone] Reno Enrique MD Scheduling Appointments 09/08/2024 Telephone [facility] Minimally Invasive Surgery [address] [place] [address] Medical Office Building [address] [place] [address] Mari Eddy CMA 09/04/2024 Telephone [facility] Medical Group at the [address] [place] [address] Arvind Christianson MD Medical Question/Miscellane ous 09/02/2024 1:15 PM CDT Office Visit [facility] [address] [place] [address] [address] [place] [address] Arvind Christianson MD Moderate obstructive sleep apnea (Primary Dx); Essential (primary) hypertension 08/14/2024 4:19 PM CDT - 08/14/2024 11:59 PM CDT Hospital Encounter [facility] [address] [facility] [address] [place] [address] Moderate obstructive sleep apnea Discharge Disposition: Discharge to home or self care 07/18/2024 9:30 AM CDT Office Visit [facility] at the [address] [place] [phone] Nakia Rankin, KODI Sleep disorder (Primary Dx); Morbid obesity with BMI of 40.0-44.9, adult (HCC) 07/16/2024 8:30 AM CDT Clinical Support [facility] Diabetes and Nutrition [address] [facility] [address] [place] [address] Morbid obesity with body mass index (BMI) of 40.0 to 49.9 (HCC) (Primary Dx); Essential (primary) hypertension 06/20/2024 Plan of Care Documentation [facility] Physical Therapy [address] [place] [phone] 06/20/2024 9:00 AM MANAGEMENT ENGINEER Therapy [facility] Physical Therapy [address] [place] [phone] Elizabeth Tenorio DPT Morbid obesity with body mass index (BMI) of 40.0 to 49.9 (HCC) (Primary Dx); Essential (primary) hypertension from Last 3 Months [...] with O2 dominick of 82% - DME: [facility] Assessment & Plan (09/02/2024 4:01 PM CDT): 1. Chronic, Poorly-controlled 2. Reviewed sleep study results 3. Discussed treatment options 4. Patient decided on CPAP therapy 5. Will place order No diagnosis on Accord I 06/11/2024 Essential (primary) hypertension 06/11/2024 Assessment [...] Vestibular migraine 08/15/2021 Dizziness and giddiness 02/23/2021 Immunizations Immunization Administration Dates Next Due Influenza, Unspecified 01/29/2024 Social History Tobacco Use Types Packs/Day Years [...] 09/12/2024 9:23 AM CDT Plan of Treatment Not on [...] a diagnostic study utilizing an unattended, FDA-approved ResMed ApneaLink Air portable monitoring device. The patient was provided instruction of the device and its application by a registered photo technologist at the [facility] Center for Sleep Medicine / [facility]. The study included channels of heart rate, oxygen saturation, respiratory effort, respiratory airflow, snoring, and body position. The study was analyzed by a registered photo technologist. The raw data was reviewed by [...] recommend that the patient follow-up with the [facility] to further discuss these findings and treatment options. If the patient is not a patient of the [facility], the patient should follow-up with the referring physician to discuss these findings and for the subsequent plan of care. [image] Arvind Christianson MD Internal/Sleep Medicine [facility] Medical Group at the [facility] us Nakia Rankin NP SLEEP CENTER ORDERABLES Final Result from Last 3 Months Insurance [place] [phone] [place] [phone] Care Teams Naturopath Relationship Specialty Start Date End Date Cedric Esqueda MD [address] [place] [address] PCP - General Family Medicine 01/04/21 Avril Gongora NP [facility] [place] [id number] Nurse Practitioner Family Practice 01/15/24
--- OUTSIDE RECORDS SUMMARY | 2024-09-13 09:30 | XMS_ITS | Encounter Summary ---
Author Organization [facility] Healthcare Address [address] [place] [address] Care Team Providers Care Cable Machine Operator Name Role Phone Cedric Esqueda MD Primary Care Prov ider Avril Gongora NP Unavailable [phone] Reason for Visit * Reason Onset Date Comments Medical Question/Miscellaneous 09/04/2024 Encounter Details Date Type Department Care Team (Late st Contact Info) Description 09/04/2024 Telephone [facility] Medical Group at the [address] [place] [address] Arvind Christianson MD [address] [place] [address] [address] [place], [place] [id number] Medical Question/Miscellaneous Social History Tobacco Use Types Packs/Day Years Used Date Smoking Tobacco: Never Passive Smoke Exposure: Never Smokeless Tobacco: Never AUDIT-C Answer Date Recorded Q1: How often do you have a drink containing alc ohol? Monthly or less 07/18/2024 Q2: How many drinks containi ng alcohol do you have on a typical day when you are drinking? 1 or 2 07/18/2024 Q3: How often do you have si x or more drinks on one occasion? Never 07/18/2024 PHQ-2 Answer Date Recorded PHQ-2 Total Score 0 07/18/2024 Comments No Sex and Gender Information Value Date Recorded Sex Assigned at Not on file Legal Sex Female 1:43 PM CDT Gender Identity Female 08/15/2021 6:30 AM CDT Sexual Orientation Straight 08/15/2021 6: 30 AM CDT documented as of this encounter Miscellaneous Notes * Telephone Encounter - Jessica Nagel - 09/04/2024 8:18 AM CDT Medical Question/Miscellaneous Callerâ€™s Concern: Laura calling from [employer] received inquiry yesterday regarding home health and cpap machine for patient. She said that [facility] told patient she has a deductible and copay for CPAP machine however Aishwarya said the patient's plan shows it is 100 percent covered. She needs to contact home health to discuss this with them or let us know so we can each out to [facility] and provided that information to them. Please call her back to discuss. Routing to admin per collection team lead. Does message need to be routed? Yes-Action Needed documented in this encounter Plan of Treatment Not on file documented as of this encounter Visit Diagnoses Not on filedocumented in this encounter Care Teams Cable Machine Operator Relationship Specialty Start Date End Date Cedric Esqueda MD [address] [place] [address] PCP - General Family Medicine 01/04/21 Avril Gongora NP [address] [place] [address] Nurse Practitioner Family Practice 01/15/24 documented as of this encounter
--- OUTSIDE RECORDS SUMMARY | 2024-09-13 09:30 | XMS_ITS | Data Portability ---
Author Organization [place] [facility], Main Office Address [address] [place] [address] Assessment Encounter Date Assessment Date Assessment LastModified [...] Organization Details Last Modified Time Details Appointments None recorded. Lab None recorded. Referral None recorded. Procedures injection/a spiration joint/bursa (PROC) 2024 025 [email or web address] In-Office Order, Internal Use Only DO Not Attach Compendium DO Not Attach Compendium, Do Not Delete/merge, [id number] 5 10:20:52 injection/a spiration joint/bursa (PROC) 2023 024 [email or web address] In-Office Order, Internal Use Only DO Not Attach Compendium DO Not Attach Compendium, Do Not Delete/merge, [id number] 4 09:42:59 injection/a spiration joint/bursa (PROC) - in office procedure, administere d by provider 2023 024 [email or web address] In-Office Order, Internal Use Only DO Not Attach Compendium DO Not Attach Compendium, Do Not Delete/merge, [id number] 4 08:59:54 injection/a spiration joint/bursa (PROC) - in office procedure, administere d by provider 2023 024 [email or web address] In-Office Order, Internal Use Only DO Not Attach Compendium DO Not Attach Compendium, Do Not Delete/merge, [id number] 4 09:05:11 Surgeries None recorded. Imaging XR, knee, 3 view 2023 024 [email or web address] [facility], [address], [place], [address], 4 22:33:27 Medication Orders bupivacaine HCl 0.5 % (5 mg/mL) injection solution 2024 025 [email or web address] [id number], [address], [address], 5 11:46:00 Kenalog 10 mg/mL suspension for injection 2024 025 [email or web address], [address] [facility] [address] [place] [address], [address], 5 11:46:00 bupivacaine HCl 0.5 % (5 mg/mL) injection solution 2023 024 [email or web address], [address] [facility] [address] [place] [address], [address], 4 10:43:27 Kenalog 10 mg/mL suspension for injection [address]/[facility]6926, [address], [address], 4 10:43:27 Marcaine (PF) 0.5 % (5 mg/mL) injection solution [address]/[facility]6926, [address], [address], 4 10:45:44 Kenalog 10 mg/mL suspension for injection [address]/[facility]6926, [address], [address], 4 10:45:44 Kenalog 10 mg/mL suspension for injection 2023 024 [id number] [facility], [address], [address], 4 08:14:47 Marcaine (PF) 0.5 % (5 mg/mL) injection solution [address]/[facility]6926, [address] [facility] [address] [place] [address], [address], 4 22:44:50 Mobic 15 mg tablet [address]/[facility]7730, [address], [place], [address], 22:33:27 Patient TargetsNo targets recorded. Patient InstructionsNo instructions recorded. Reason for Referral None Reported. Results Created Date Observation Date Name Description Value Unit Range Abnormal Flag Note LastModifiedBy Organization Detail LastModifiedTime 05/29/19 24 XR, knee, 3 view No observ ation record ed. [email or web address] [facility] [address] [facility] [address], [place], [address], 05/29/2023 17:43:55 Result Notes None recorded. Problems Name Problem SNOMED Code Status Onset Date Resolution Date Notes Provider Name and Address Organization Details Recorded Time Pain of right knee joint 6767295906266 00 Active 2023 Peggy Thayer ATC [place], [place] [facility] 09:22:41 Osteoarthri tis of right knee joint 8370703033965 00 Active 2023 DESTIN Bhatti [address] [facility], [place], [address], [employer] [facility] 09:17:18 Problem Notes None recorded. Procedures Surgical History Date Name Laterality Status Provider Name and Address Organization Details Recorded Time 07/03/19 24 Ortho - Cortisone Injection completed Gi Elaine NP [address] [facility], [place], [address], [place] [facility] [employer] 07/03/2023 21:07:11 Hysterectomy completed Peggy Thayer [facility]C [place] [facility] [employer] 05/29/2023 09:21:40 section completed Peggy Thayer [facility]C [facility] [place] [facility] 05/29/2023 09:21:53 Gallbladder Surgery completed Peggy Thayer [facility]C [facility] [place] [facility] 05/29/2023 09:22:05 Imaging Results Imaging Date Name Status LastModified by Organiz ation Details LastModified Time 05/29/2023 XR, knee, 3 view completed [email or web address] [facility] [address], [place], [address], 05/29/2023 17:43:55 Procedure Notes None recorded. Medical Equipment None Reported. Allergies Allergen ID Allergen Name Allergen Category Reaction Reaction Severity Criticality Documentation Date Start Date Code Code System Note Provider Name and Address Organization Details Recorded Time 39161 morphine medicatio n Not available Not available Not available 06/28/2022 7052 RxNorm Not Available [facility] 3 22:07:24 Medications Name Sig Start Date Stop [...] 20 mg by injection route. 2024 active [facility]: 0003- 0494- 20 Not Available Not Available [...] Updated DateTime 05/29/2023 165.1 cm 48.1 kg/m2 851224.19 g Peggy Thayer [facility] Bre [facility] [employer] [facility] 05/29/2023 09:18:46 Date Recorded Body height Body mass index (BMI) Body weight Pain severity - 0-10 verbal numeric rating [Score] - Reported Provider Name and Address Organization Details Last Updated DateTime 07/03/2023 165.1 cm 46.6 kg/m2 750864.86 g Sujata Nguyen [facility] [employer] [facility] 07/03/2023 08:40:21 Date Recorded Body height Body mass index (BMI) Body weight Provider Name and Address Organization Details Last Updated DateTime 10/22/2023 165.1 cm 48.3 kg/m2 243772.79 g Claire Skinner [employer] [facility] [employer] [facility] 10/22/2023 08:57:02 Date Recorded Body height Body mass index (BMI) Body weight Provider Name and Address Organization Details Last Updated DateTime 01/24/2024 165.1 cm 49.6 kg/m2 467579.53 g Claire Susanne [facility] [employer] [facility] 01/24/2024 09:40:50 Date Recorded Body height Body mass index (BMI) Body weight Provider Name and Address Organization Details Last Updated DateTime 05/16/2024 165.1 cm 48.9 kg/m2 917209.16 g Claire Susanne, [facility] [employer] [facility] 05/16/2024 10:19:28 Social History None recorded. Functional Status Question Answer Note LastModified by Organizat ion Details LastModified Time What is your level of alcohol consumption? Occasional [email or web address] Information not available 05/29/2023 Mental Status None recorded. Family History Relationship [...] SNOMED-CT Code Diagnosis ICD10 Code Diagnosis Note [id number] Ruben Talavera MD [facility] [place] [place] [facility] [address] [place] [address] 05/29/2023 09:00:13 05/29/2023 09:53:24 Pain of right knee joint 5830154588 72784 M25.224 [id number] Ruben Talavera MD [facility] [place] [place] [facility] [address] [place] [address] 07/03/2023 08:38:19 07/03/2023 09:06:11 Pain of right knee joint 9709233193 25160 M25.544 [id number] Ruben Talavera MD [facility] [place] [place] [facility] [address] [place] [address] 10/22/2023 08:50:19 10/22/2023 10:14:35 Pain of right knee joint 1627870264 59194 M25.561 Osteoarthr itis of right knee joint 4644136278 87698 M17.11 [id number] Ruben Talaevra MD [facility] [place] [facility] [address] [place] [address] 01/24/2024 09:35:04 01/24/2024 10:18:23 Osteoarthritis of right knee joint 6543153857 68554 M17.11 Pain of ri ght knee joint 0445438554 55929 M25.528 [id number] Ruben Talavera MD [facility] [place] [address] [facility] [address] [place] [address] 05/16/2024 10:09:55 05/16/2024 10:56:38 Osteoarthritis of right knee joint 7260372188 10972 M17.11 Pain of ri ght knee joint 1915971292 44976 M25.561 Health Concerns Section Related Observation LastModified by Organization Detai ls LastModified Time None Recorded Concern Status LastModified by Organization Details LastModified Time None Recorded Advance Directives Directive None Recorded Payers Encounter Date Sequence Insurance Name Policy Number Policy Mcconnell Covered Member ID Mcconnell Member ID Guarantor Name 05/29/2023 1 [employer] (PP[employer]) [id number] Ruben Terrell [id number] 2 Beverley Terrell 07/03/2023 1 [employer]) [id number] Ruben Terrell [id number] 2 Beverley Terrell 10/22/2023 1 [employer] ([employer]) [id number] Ruben Terrell [id number] 2 Beverley Terrell 01/24/2024 1 [employer] (PP[employer]) [id number] Ruben Terrell [id number] 2 Beverley Terrell 05/16/2024 1 [employer] (PP[employer]) [id number] Ruben Terrell [id number] Beverley Terrell Notes Date Note Type [...] DESTIN Bhatti [address], [address], [place], [address], [employer] [facility] [employer] [facility] 10/22/2023 09:17:41 01/24/2024 text/html Patient returns complaining [...] DESTIN Bhatti [address], [place], [address], [employer] [facility] 01/24/2024 10:11:29 05/16/2024 text/html The patient retu [...] of cortisone today. DESTIN Bhatti [address], [address], [place], [address], [employer] [facility] 05/16/2024 10:42:01 OBGyn Episode No OBEpisode recorded.
--- OUTSIDE RECORDS SUMMARY | 2024-09-13 09:31 | XMS_ITS | Clinical Summary ---
Author Organization [facility]ly [facility] Address [address] [place] [address] Care Team Providers Care Multimedia Project Manager Name Role Phone Unavailable Primary Care Provider Unavailabl e Social History Tobacco Use Types Packs/Day Years Used Date Smoking Tobacco: Never Assessed Comments Unknown Sex and Gender Information Value Date Recorded Sex Assigned at Not on file Legal Sex Female 2:44 PM [employer] Gender Identity Not on file Sexual Orientation Not on file Plan of Treatment Health Maintenance Due Date Last Done Comments DTAP/TDAP/TD VACCINES (1 - Tdap) 12/01/1990 HEPATITIS B VACCINES (1 of 3 - 19+ 3-dose series) 07/1990 HPV/Cotest (21-29) 12/01/1992 CERVICAL CANCER SCREENING 12/01/2001 HPV/Cotest (30-65) 12/01/2001 PAP SMEAR 12/01/2001 BREAST CANCER SCREENING 2011 COLORECTAL SCREENING 12/01/2016 Colorectal Cancer Screening 12/01/2016 FIT-DNA Q 3 years 12/01/2016 FIT/FOBT Q 1 year 12/01/2016 Flex Sig/CT Colonography Q 5 years 12/01/2016 ZOSTER VACCINE (1 of 2) 12/01/2021 INFLUENZA VACCINE (#1) 2023
[2024-09-13 11:22] LABS: Alanine Aminotransferase 33 U/L (6-35); Albumin Level 4.2 g/dL (3.5-5.1); Alkaline Phosphatase 90 U/L (38-126); Anion Gap 10 mmol/L (4-12); Aspartate Amino Transferase 29 U/L (14-36); Bilirubin,Total 0.6 mg/dL (0.2-1.3); Blood Urea Nitrogen 16 mg/dL (7-17); Calcium 8.8 mg/dL (8.4-10.2); Carbon Dioxide 25 mmol/L (22-30); Chloride 104 mmol/L (98-107); Estimated Glomerular Filt Rate > 60; Glucose 88 mg/dL (65-110); Potassium 4.2 mmol/L (3.4-5.0); Sodium 139 mmol/L (137-145)
== END 2024-09-13 09:27 | disposition home or self-care (01) ==
LOC: ANHLAB 09:29
PROVIDERS: PCP Nurse Practitioner Family; Visit Provider Family Medicine
DX: R79.89 Other specified abnormal findings of blood chemistry (principal)
CPT/HCPCS: 36415; 80053